=== PATIENT | male | born 1950 | race Caucasian/White ===

== ENCOUNTER → 2017-08-16 | Outpatient (REF) | payer MEDICARE ==
[2017-08-17 08:06] LABS: LDL DIRECT 98 mg/dL (0-99)
== END ==
LOC: M LAB REF 12:35
DX: E78.2 Mixed hyperlipidemia (principal)
CPT/HCPCS: 83721

== ENCOUNTER → 2018-02-21 | Outpatient (REF) | payer MEDICARE ==
[2018-02-23 08:06] LABS: LDL DIRECT 115 mg/dL (0-99)
== END ==
LOC: M LAB REF 17:16
DX: E78.2 Mixed hyperlipidemia (principal)
CPT/HCPCS: 83721

== ENCOUNTER 2018-07-16 17:12 | Emergency (ER) | payer MEDICARE ==
[~2018-07-16] VITALS: Ht 170.2 cm; Wt 109.1 kg
[~2018-07-16 17:12] MED LIST: /AUGM25TA; ACET65TA; ACTO45TA; ASPI81TA83 PO; ATOR80TA59 PO; AZIT500T2 PO; BACT800T; BENICAR HCT; CARA1TAB6 PO; DARV100T; GLUC1000; GLUC500T; GLUC5TAB3; GLYB5TAB5 PO; HYDR25TA8; LISI-542 PO; LOPR50TA PO; MAGN400T2 PO; METF500T PO; METO-743; METO1TAB63 PO; MIRA3350 PO; MULTLIQ7 PO; NEUR300C PO; NICO21DI4; PERCOCET PO; PRED10TA2; PRED20TA PO; PRED5TA PO; PREDPOW10; PROT1TAB2 PO; SIMV20TA2 PO; SKEL800T5; SKELAXIN; TRAM50TA2; TRAM50TA2 PO; TRAZ-160 PO; VITA-115 PO; VITA-183 PO; VITMTA PO; VYTO10TA5; WARF-23 PO; XANA0.25 PO; ZEST20TA8 PO; ZETI10TA; ZOLO50TA PO; [UNRECOGNIZED DRUG - MIXTURE] PO
[2018-07-16] MEDS ORDERED: METF500T4 (17:21)
[2018-07-16] MEDS ORDERED: JANU25TA PO (17:21)
[2018-07-16] MEDS ORDERED: guaiFENesin SYRUP 200 MG/10 ML UDC PO ONE (17:45)
[2018-07-16] MEDS ORDERED: ALBUTEROL SULFATE 2.5 MG/0.5 ML INH NEB SOLN NEB ONE (17:45)
[2018-07-16] MEDS ORDERED: GUAI100L6 PO (18:04)
[2018-07-16] MEDS ORDERED: FLON1SPR NARES (18:04)
[2018-07-16] MEDS ORDERED: AZIT-12 PO (18:04)
[2018-07-16] MEDS ORDERED: AZITHROMYCIN 250 MG TAB PO ONE (18:15)
[2018-07-16 18:26] VITALS: BP 127/70
--- NOTE | 2018-07-17 07:32 | REP ---
Chest x-ray: Two views. History: Cough and wheezing. Comparison study: August 06, 2013. Findings: The lungs are symmetrically aerated and free of infiltrate. Pleural angles are sharp. Heart is not enlarged. The patient is status post prior median sternotomy and aortic valve replacement. There is no evidence of pleural effusion. Mild degenerative changes are seen in the thoracic spine. Impression: Status post prior sternotomy and aortic valve replacement. No acute disease. Electronically Signed by Catarino Tobar MD 07/17/2018 07:55 A
== END 2018-07-16 18:27 | disposition home or self-care (01) ==
LOC: M ED 17:12
DX: J18.9 Pneumonia, unspecified organism (principal); E11.9 Type 2 diabetes mellitus without complications; I10 Essential (primary) hypertension; F41.9 Anxiety disorder, unspecified; M31.6 Other giant cell arteritis; J32.9 Chronic sinusitis, unspecified; E66.9 Obesity, unspecified; Z95.2 Presence of prosthetic heart valve; Z96.9 Presence of functional implant, unspecified; Z72.0 Tobacco use; Z79.84 Long term (current) use of oral hypoglycemic drugs; Z79.01 Long term (current) use of anticoagulants; Z79.899 Other long term (current) drug therapy; Z91.041 Radiographic dye allergy status; Z91.040 Latex allergy status; Z88.8 Allergy status to other drugs, medicaments and biological substances

== ENCOUNTER 2018-07-23 13:22 | Emergency (ER) | payer MEDICARE ==
[~2018-07-23] VITALS: Ht 177.8 cm; Wt 109.1 kg
[~2018-07-23 13:22] MED LIST changes: +AZIT-12 PO; +FLON1SPR NARES; +GUAI100L6 PO; +JANU25TA PO; +METF500T4
[2018-07-23 13:23] VITALS: BP 134/73
[2018-07-23] MEDS ORDERED: VENTAER INH (14:09)
[2018-07-23] MEDS ORDERED: BREAMIS10 MC (14:09)
[2018-07-23] MEDS ORDERED: AMOX875T2 PO (14:09)
[2018-07-23] MEDS ORDERED: PRED20TA PO (14:09)
== END 2018-07-23 14:41 | disposition home or self-care (01) ==
LOC: M ED 13:22
DX: J01.90 Acute sinusitis, unspecified (principal); R05 Cough; R06.2 Wheezing; I13.0 Hypertensive heart and chronic kidney disease with heart failure and stage 1 through stage 4 chronic kidney disease, or unspecified chronic kidney disease; I50.9 Heart failure, unspecified; N18.9 Chronic kidney disease, unspecified; I25.2 Old myocardial infarction; E11.9 Type 2 diabetes mellitus without complications; E78.5 Hyperlipidemia, unspecified; G47.30 Sleep apnea, unspecified; G89.29 Other chronic pain; M54.9 Dorsalgia, unspecified; F17.210 Nicotine dependence, cigarettes, uncomplicated; Z86.73 Personal history of transient ischemic attack (TIA), and cerebral infarction without residual deficits; Z79.01 Long term (current) use of anticoagulants; Z79.891 Long term (current) use of opiate analgesic; Z79.899 Other long term (current) drug therapy; Z88.8 Allergy status to other drugs, medicaments and biological substances; Z95.4 Presence of other heart-valve replacement; Z91.040 Latex allergy status; Z91.041 Radiographic dye allergy status

== ENCOUNTER 2019-02-11 16:13 | Emergency (ER) | payer MEDICARE ==
[~2019-02-11] VITALS: Ht 172.7 cm; Wt 114.1 kg
[~2019-02-11 16:13] MED LIST changes: +AMOX875T2 PO; -AZIT500T2 PO; +AZIT500T5 PO; +BREAMIS10 MC; +METF-791; -METF500T4; -TRAZ-160 PO; +TRAZ-252 PO; +VENTAER INH
[2019-02-11] MEDS ORDERED: GLUCTAB PO (16:21)
--- NOTE | 2019-02-11 17:16 | REP ---
CT of the brain without IV contrast: Comparisons are 08/06/2013 and 06/06/2013. There is no subdural or epidural hematoma. There is no intraparenchymal or subarachnoid hemorrhage. There is no edema, mass effect or midline shift. There is focal encephalomalacia consistent with an old infarct posteriorly in the left parietal lobe. There is mild diffuse atrophy, unchanged. There is opacification of many ethmoid sinus air cells, compatible with sinusitis as an interval change . Impression: No hemorrhage, acute infarct or mass. 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 Chronic mild diffuse atrophy. Ethmoid sinusitis as an interval change. Electronically Signed by Pal Leyva MD 02/11/2019 05:07 P
--- NOTE | 2019-02-11 17:17 | REP ---
Right humerus two views : There is no fracture or dislocation. Mineralization and joint spaces are normal. There are no calcifications or foreign bodies. Impression: Negative right humerus . Electronically Signed by Pal Leyva MD 02/11/2019 05:09 P
--- NOTE | 2019-02-11 17:19 | REP ---
Right elbow for views : There is no fracture or dislocation. Mineralization and joint spaces are normal. There are no calcifications or foreign bodies. Impression: Negative right elbow . Electronically Signed by Pal Leyva MD 02/11/2019 05:10 P
[2019-02-11] MEDS ORDERED: PERC5TAB12 PO (17:45)
[2019-02-11 18:04] VITALS: BP 162/77
== END 2019-02-11 18:05 | disposition home or self-care (01) ==
LOC: M ED 16:13
DX: S09.90XA Unspecified injury of head, initial encounter (principal); S40.021A Contusion of right upper arm, initial encounter; W22.8XXA Striking against or struck by other objects, initial encounter; Y92.096 Garden or yard of other non-institutional residence as the place of occurrence of the external cause; Y93.H9 Activity, other involving exterior property and land maintenance, building and construction; Y99.8 Other external cause status; F17.210 Nicotine dependence, cigarettes, uncomplicated; Z91.041 Radiographic dye allergy status; Z88.8 Allergy status to other drugs, medicaments and biological substances; Z91.040 Latex allergy status; Z79.899 Other long term (current) drug therapy; Z79.01 Long term (current) use of anticoagulants; Z79.84 Long term (current) use of oral hypoglycemic drugs

== ENCOUNTER 2019-06-24 10:59 | Emergency (ER) | payer MEDICARE ==
[~2019-06-24] VITALS: Ht 172.7 cm; Wt 114.7 kg
[~2019-06-24 10:59] MED LIST changes: +GLUCTAB PO; +PERC5TAB12 PO
[2019-06-24 12:16] VITALS: BP 157/72
== END 2019-06-24 12:22 | disposition home or self-care (01) ==
LOC: M ED 10:59
DX: B07.0 Plantar wart (principal); I50.9 Heart failure, unspecified; E11.9 Type 2 diabetes mellitus without complications; I10 Essential (primary) hypertension; E78.5 Hyperlipidemia, unspecified; Z86.73 Personal history of transient ischemic attack (TIA), and cerebral infarction without residual deficits; R51 Headache; G47.33 Obstructive sleep apnea (adult) (pediatric); I77.6 Arteritis, unspecified; Z86.718 Personal history of other venous thrombosis and embolism; F17.200 Nicotine dependence, unspecified, uncomplicated; Z79.01 Long term (current) use of anticoagulants; Z79.899 Other long term (current) drug therapy; Z91.040 Latex allergy status; Z91.041 Radiographic dye allergy status; Z88.8 Allergy status to other drugs, medicaments and biological substances

== ENCOUNTER 2019-07-23 13:12 | Emergency (ER) | payer MEDICARE ==
[~2019-07-23] VITALS: Ht 172.7 cm; Wt 114.2 kg
[2019-07-23] MEDS ORDERED: methylPREDNISolone INJ 125 MG/2 ML VIAL (J2930) IV ONE (13:45)
[2019-07-23] MEDS: COMBIVENT RESPIMAT 100-20MCG INHALER 4GM INH PRN ×4 (13:59→15:17)
[2019-07-23 14:15] LABS: BASO # 0.1 10^3/uL (0.0-0.2); BASO % 0.5 % (0.0-1.0); EOS # 0.5 10^3/uL (0.0-0.5); EOS % 5.2 % (0.0-3.0); HEMATOCRIT 45.3 % (42.0-52.0); HEMOGLOBIN 15.4 g/dl (13.5-17.5); LYMPH # 2.2 10^3/uL (1.5-5.0); LYMPH % 23.8 % (24.0-44.0); MEAN CORPUSCULAR HEMOGLOBIN 33.1 pg (27.0-33.0); MEAN CORPUSCULAR VOLUME 97.4 fl (80.0-96.0); MONO % 11.4 % (0.0-5.0); NEUTROPHILS # 5.4 10^3/uL (1.5-8.5); NEUTROPHILS % 58.8 % (36.0-66.0); PLATELET COUNT, AUTOMATED 183 10^3/uL (150-450); RED BLOOD COUNT 4.65 10^6/uL (4.30-6.10); WHITE BLOOD COUNT 9.1 10^3/uL (4.0-10.0)
--- NOTE | 2019-07-23 14:23 | ECGEPIP ---
[facility] - ED Test Date: 2019-07-23 Pat Name: IRENE NEELY Department: Room: - Gender: Male Framing Inspector: jfjose : 1950 Requested By: SERENE Akins Order Number: [id number] Reading MD: Aditi Santamaria Measurements Intervals [place] Rate: 77 P: 28 MT: 212 QRS: -51 QRSD: 146 T: 28 QT: 421 QTc: 478 Interpretive Statements Normal sinus rhythm INTRAVENTRICULAR CONDUCTION DELAY LAD LAFB DELAYED R WAVE PROGRESSION PVCS NONSPECIFIC ST T WAVE CHANGES NO PRIOR ECG FOR COMPARISON Electronically Signed on 07-23-2019 14:22:40 EDT by Aditi Santamaria
[2019-07-23 14:44] LABS: ALBUMIN 3.5 GM/DL (3.2-5.2); ALT/SGPT 21 U/L (12-78); BILIRUBIN,DIRECT < 0.1 MG/DL (0.0-0.2); BILIRUBIN,TOTAL 0.5 MG/DL (0.2-1.0); BLOOD UREA NITROGEN 25 MG/DL (7-18); CALCIUM LEVEL 8.5 MG/DL (8.8-10.2); CARBON DIOXIDE LEVEL 25 MEQ/L (21-32); CHLORIDE LEVEL 105 MEQ/L (98-107); CK-MB VALUE MASS 1.1 NG/ML (<3.6); CPK CREATINE PHOSPHOKINASE 100 U/L (39-308); CREATININE FOR GFR 0.96 MG/DL (0.70-1.30); GLOMERULAR FILTRATION RATE > 60.0 (>42); GLUCOSE, FASTING 132 MG/DL (70-100); NT-PRO BNP 678 PG/ML (<125); POTASSIUM SERUM 4.9 MEQ/L (3.5-5.1); SODIUM LEVEL 137 MEQ/L (136-145); TOTAL PROTEIN 7.4 GM/DL (6.4-8.2); TROPONIN I 0.03 NG/ML (< 0.10)
[2019-07-23] MEDS ORDERED: VENTAER INH (15:09)
[2019-07-23] MEDS ORDERED: PRED20TA PO (15:10)
[2019-07-23] MEDS ORDERED: FUROSEMIDE 40MG/4ML VIAL (J1940) IV ONE (15:15)
[2019-07-23 15:24] VITALS: BP 157/64
--- NOTE | 2019-07-24 00:42 | REP ---
PORTABLE CHEST X-RAY, SINGLE VIEW: HISTORY: Dyspnea and cough. COMPARISON CHEST X-RAY: 07/16/2018 FINDINGS: Patient is status post prior median sternotomy. Monitoring electrodes are seen. Pleural angles are sharp. There is mild cephalization of the pulmonary vasculature. No focal infiltrate is seen. There are two or three linear subpleural densities on the right, which appear to be new, consistent with subsegmental atelectasis versus Shanelle lines. There is fissural thickening. Heart size is unchanged. IMPRESSION: Pulmonary vascular cephalization. Post median sternotomy. Shanelle lines versus subsegmental atelectatic areas along the right lateral chest. Unreviewed
== END 2019-07-23 15:36 | disposition left against medical advice (07) ==
LOC: M ED 13:12
DX: R06.02 Shortness of breath (principal); R94.31 Abnormal electrocardiogram [ECG] [EKG]; I28.8 Other diseases of pulmonary vessels; Z53.21 Procedure and treatment not carried out due to patient leaving prior to being seen by health care provider; I11.0 Hypertensive heart disease with heart failure; I25.10 Atherosclerotic heart disease of native coronary artery without angina pectoris; E11.9 Type 2 diabetes mellitus without complications; D64.9 Anemia, unspecified; E78.5 Hyperlipidemia, unspecified; I63.9 Cerebral infarction, unspecified; F17.210 Nicotine dependence, cigarettes, uncomplicated; Z88.8 Allergy status to other drugs, medicaments and biological substances; Z91.041 Radiographic dye allergy status; Z91.040 Latex allergy status; Z79.51 Long term (current) use of inhaled steroids; Z79.899 Other long term (current) drug therapy
CPT/HCPCS: 36415; 71045; 80048; 80076; 82550; 82553; 83880; 84443; 84484; 85025; 87486; 87581; 87633; 87798; 93005; 93041; 94640; 94760; 96374; 99285; J1940; J2930; U0002

== ENCOUNTER → 2019-10-20 | Outpatient (CLI) | payer MEDICARE ==
[~2019-10-20] MED LIST changes: +ALPR0.25 PO; +AMIO400T5 PO; +ATOR40TA75 PO; +DOK1CAP7 PO; +FERR32TA AD; +FOLI1TAB11 PO; +FURO20TA2; +JANU100T PO; +LASI40TA9 PO; -METF-791; +METF-838; +METO50TA7; +NITR0.4S14 SL; +OXYC1TAB23 PO; +POTA1TAB14 PO; +PRAS10TA2 PO; +PRED20TA; +TOPR25TA PO; +TORS100T PO; +TORS10TA3 PO; +XARE15TA PO
--- NOTE | 2019-10-20 13:13 | REP ---
REASON: Tobacco abuse. There are no priors for comparison. As per the protocol, only lung window images were sent to the read station for interpretation. Curvilinear densities are seen scattered throughout the lung nathan with mild bibasilar ground-glass opacities. There are no abnormal nodules. Grossly, the mediastinum and pulmonary justina are within normal limits. Grossly, the imaged upper abdomen and imaged osseous structures are within normal limits. IMPRESSION: Likely chronic changes as described above without evidence of a significant nodule, however, since there are no priors for comparison, I would recommend a short interval three month followup. Electronically Signed by Liam Perez DO 10/20/2019 05:00 P
== END ==
LOC: M RAD 11:11
PROVIDERS: ATTEND Family Medicine
DX: Z12.2 Encounter for screening for malignant neoplasm of respiratory organs (principal); F17.210 Nicotine dependence, cigarettes, uncomplicated

== ENCOUNTER → 2019-11-08 | Emergency (ER) | payer MEDICARE ==
[~2019-11-08] MED LIST changes: +FUROSEMIDE 20MG/2ML VIAL (J1940) As Ordered ONE; +FUROSEMIDE 20MG/2ML VIAL (J1940) ONE
--- NOTE | 2019-12-21 17:16 | ECGEPIP ---
SINUS RHYTHM IVCD LAD SEE SCANNED DOWNTIME REPORT MTDD
--- NOTE | 2019-12-28 10:04 | REP ---
PORTABLE CHEST X-RAY: COMPARISON: None. HISTORY: Chest pain. FINDINGS: The patient is status post prior median sternotomy. The left hemidiaphragm is slightly elevated. There is linear fibrosis in the left perihilar region, mild in degree. The lungs are otherwise well-inflated and clear. The pleural angles are sharp. The thoracic aorta is somewhat tortuous. Pulmonary vasculature is not increased. IMPRESSION: Mild linear fibrosis left perihilar region. Prior sternotomy. Otherwise no acute disease. MTDD
[2020-01-26 08:18] LABS: ALBUMIN 3.7 GM/DL (3.2-5.2); ALT/SGPT 24 U/L (12-78); BILIRUBIN,TOTAL 0.7 MG/DL (0.2-1.0); BLOOD UREA NITROGEN 25 MG/DL (7-18); CALCIUM LEVEL 9.1 MG/DL (8.8-10.2); CARBON DIOXIDE LEVEL 23 MEQ/L (21-32); CHLORIDE LEVEL 109 MEQ/L (98-107); CK-MB VALUE MASS 1.4 NG/ML (<3.6); CPK CREATINE PHOSPHOKINASE 107 U/L (39-308); CREATININE FOR GFR 1.25 MG/DL (0.70-1.30); GLOMERULAR FILTRATION RATE > 60.0 (>42); GLUCOSE, FASTING 134 MG/DL (70-100); MAGNESIUM LEVEL 1.8 MG/DL (1.8-2.4); MB/CK RELATIVE INDEX 1.31 (< OR =4); NT-PRO BNP 2704 PG/ML (<125); POTASSIUM SERUM 4.5 MEQ/L (3.5-5.1); SODIUM LEVEL 138 MEQ/L (136-145); THYROID STIMULATING HORMONE 0.939 uIU/ML (0.358-3.740); TOTAL PROTEIN 7.7 GM/DL (6.4-8.2); TROPONIN I 0.06 NG/ML (< 0.10)
[2020-02-06 11:22] LABS: BASO % 0.3 % (0.0-1.0); EOS # 0.4 10^3/uL (0.0-0.5); EOS % 4.4 % (0.0-3.0); HEMOGLOBIN 15.2 g/dl (13.5-17.5); LYMPH # 1.8 10^3/uL (1.5-5.0); LYMPH % 20.3 % (24.0-44.0); MEAN CORPUSCULAR HGB CONC 33.8 g/dl (32.0-36.5); MEAN CORPUSCULAR VOLUME 97.6 fl (80.0-96.0); MONO # 0.8 10^3/uL (0.0-0.8); MONO % 8.8 % (0.0-5.0); NEUTROPHILS # 5.9 10^3/uL (1.5-8.5); NEUTROPHILS % 65.8 % (36.0-66.0); PLATELET COUNT, AUTOMATED 169 10^3/uL (150-450); RED BLOOD COUNT 4.61 10^6/uL (4.30-6.10); WHITE BLOOD COUNT 8.9 10^3/uL (4.0-10.0)
[2020-02-07 16:09] LABS: INR 1.84; PARTIAL THROMBOPLASTIN TIME 36.7 SECONDS (24.2-38.5); PROTHROMBIN TIME 21.7 SECONDS (12.5-14.3)
== END | disposition home or self-care (01) ==
LOC: M ED 15:50
DX: E87.70 Fluid overload, unspecified (principal); E11.9 Type 2 diabetes mellitus without complications; I10 Essential (primary) hypertension; M54.9 Dorsalgia, unspecified; Z86.73 Personal history of transient ischemic attack (TIA), and cerebral infarction without residual deficits; Z79.01 Long term (current) use of anticoagulants; Z79.899 Other long term (current) drug therapy; Z79.84 Long term (current) use of oral hypoglycemic drugs; Z91.040 Latex allergy status
CPT/HCPCS: 71045; 80053; 81001; 82550; 82553; 83036; 83735; 83880; 84443; 84484; 85025; 85610; 85730; 87040; 93005; 96374; 99284; J1940

== ENCOUNTER 2019-12-14 10:36 | Emergency (ER) | payer MEDICARE ==
[~2019-12-14] VITALS: Ht 172.7 cm; Wt 111.0 kg
[~2019-12-14 10:36] MED LIST changes: -ALPR0.25 PO; -AMIO400T5 PO; -ATOR40TA75 PO; -DOK1CAP7 PO; -FERR32TA AD; -FOLI1TAB11 PO; -FURO20TA2; -FUROSEMIDE 20MG/2ML VIAL (J1940) As Ordered ONE; -FUROSEMIDE 20MG/2ML VIAL (J1940) ONE; -JANU100T PO; -LASI40TA9 PO; -METO50TA7; -NITR0.4S14 SL; -OXYC1TAB23 PO; -POTA1TAB14 PO; -PRAS10TA2 PO; -PRED20TA; -TOPR25TA PO; -TORS100T PO; -TORS10TA3 PO; -XARE15TA PO
[2019-12-14] MEDS ORDERED: FURO20TA2 (10:45)
[2019-12-14] MEDS ORDERED: METO50TA7 (10:45)
[2019-12-14 12:29] LABS: HEMATOCRIT 37.7 % (42.0-52.0); HEMOGLOBIN 12.6 g/dl (13.5-17.5); MEAN CORPUSCULAR HEMOGLOBIN 32.7 pg (27.0-33.0); MEAN CORPUSCULAR HGB CONC 33.4 g/dl (32.0-36.5); MEAN CORPUSCULAR VOLUME 97.9 fl (80.0-96.0); PLATELET COUNT, AUTOMATED 181 10^3/uL (150-450); RED BLOOD COUNT 3.85 10^6/uL (4.30-6.10); WHITE BLOOD COUNT 7.6 10^3/uL (4.0-10.0)
--- NOTE | 2019-12-14 12:33 | REPVR ---
PROCEDURE INFORMATION: Exam: XR Chest, 1 View Exam date and time: 12/14/2019 12:07 PM Age: 69 years old Clinical indication: Shortness of breath; Additional info: Chf TECHNIQUE: Imaging protocol: XR of the chest Views: Frontal portable upright view of the chest. COMPARISON: CR CHEST, CHEST AP 55" VG 11/08/2019 4:34 PM FINDINGS: Tubes, catheters and devices: EKG leads are present overlying the chest. Lungs: The pulmonary vasculature is normal. The lungs are clear bilaterally. Pleural space: No pleural effusion. No pneumothorax. Heart/Mediastinum: Stable borderline cardiomegaly. Bones/joints: The patient is status post median sternotomy with intact sternal cerclage wires. IMPRESSION: No acute cardiopulmonary abnormality identified. Electronically signed by: Yung Hinton On 12/14/2019 12:33:04 PM
[2019-12-14 12:50] LABS: CALCIUM LEVEL 8.7 MG/DL (8.8-10.2); CK-MB VALUE MASS 1.5 NG/ML (<3.6); CREATININE FOR GFR 1.3 MG/DL (0.70-1.30); GLOMERULAR FILTRATION RATE 57.9 (>42); MB/CK RELATIVE INDEX 2.21 (< OR =4); POTASSIUM SERUM 4.3 MEQ/L (3.5-5.1); TROPONIN I 0.12 NG/ML (< 0.10)
[2019-12-14] MEDS ORDERED: FUROSEMIDE 40MG/4ML VIAL (J1940) IV ONE (13:15)
[2019-12-14 15:17] LABS: CK-MB VALUE MASS 1.5 NG/ML (<3.6); MB/CK RELATIVE INDEX 2.21 (< OR =4); TROPONIN I 0.14 NG/ML (< 0.10)
[2019-12-14] MEDS ORDERED: LASI40TA9 PO (15:49)
[2019-12-14 16:05] VITALS: BP 136/60
--- NOTE | 2019-12-19 19:36 | ECGEPIP ---
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
== END 2019-12-14 16:07 | disposition home or self-care (01) ==
LOC: M ED 10:36
DX: I50.9 Heart failure, unspecified (principal); I35.0 Nonrheumatic aortic (valve) stenosis; Z95.2 Presence of prosthetic heart valve; R60.0 Localized edema; M31.6 Other giant cell arteritis; I11.0 Hypertensive heart disease with heart failure; E11.22 Type 2 diabetes mellitus with diabetic chronic kidney disease; I25.2 Old myocardial infarction; M51.9 Unspecified thoracic, thoracolumbar and lumbosacral intervertebral disc disorder; D64.9 Anemia, unspecified; Z95.1 Presence of aortocoronary bypass graft; F17.200 Nicotine dependence, unspecified, uncomplicated; Z86.718 Personal history of other venous thrombosis and embolism; Z91.041 Radiographic dye allergy status; Z88.8 Allergy status to other drugs, medicaments and biological substances; Z91.040 Latex allergy status; Z79.899 Other long term (current) drug therapy; Z79.01 Long term (current) use of anticoagulants; Z79.84 Long term (current) use of oral hypoglycemic drugs
CPT/HCPCS: 36415; 71045; 80048; 82550; 82553; 83880; 84484; 85027; 93005; 96374; 99284; J1940

== ENCOUNTER 2019-12-21 00:08 | Emergency (ER) | payer MEDICARE ==
[~2019-12-21] VITALS: Ht 172.7 cm; Wt 106.4 kg
[~2019-12-21 00:08] MED LIST changes: +FURO20TA2; +LASI40TA9 PO; +METO50TA7
[2019-12-21] MEDS ORDERED: PRED20TA (00:22)
--- NOTE | 2019-12-21 03:36 | REPVR ---
PROCEDURE INFORMATION: Exam: XR Chest, 1 View Exam date and time: 12/21/2019 1:32 AM Age: 69 years old Clinical indication: Other: Chest pain; Prior surgery TECHNIQUE: Imaging protocol: XR of the chest Views: 1 view. COMPARISON: CR Chest, 1 view 12/14/2019 12:12 PM FINDINGS: Lungs: Coarse bilateral predominantly perihilar and right base reticulonodular opacities. Pleural space: Unremarkable. No pleural effusion. No pneumothorax. Heart/Mediastinum: See "Bones/joints" finding. Bones/joints: Status post median sternotomy and aortic valve replacement. Degenerative changes the bilateral shoulders. Mild multilevel degenerative disease of the thoracic spine. IMPRESSION: Coarse bilateral predominantly perihilar and right base reticulonodular opacities. Electronically signed by: Wally Padgett On 12/21/2019 03:36:21 AM
[2019-12-21] MEDS ORDERED: traMADol 50 MG TAB PO ONE (04:45)
[2019-12-21] MEDS ORDERED: ASPIRIN 81 MG CHEW TABLET PO ONE (06:15)
[2019-12-21 06:42] LABS: INR 1.12; PROTHROMBIN TIME 14.6 SECONDS (11.8-14.0)
[2019-12-21 06:43] LABS: PARTIAL THROMBOPLASTIN TIME 37.9 SECONDS (25.0-38.4)
[2019-12-21] MEDS ORDERED: HEPARIN DRIP 25,000 UNITS in IV 1 EA IV SCH (06:46)
[2019-12-21] MEDS ORDERED: HEPARIN SOD (PORCINE) 5000UNITS/ML 1ML VIAL/SYRINGE IV ONE (07:00)
[2019-12-21 07:08] VITALS: BP 133/62
--- NOTE | 2019-12-23 11:29 | ECGEPIP ---
[facility] - ED Test Date: 2019-12-21 Pat Name: IRENE NEELY Department: Room: - Gender: Male Guard Immigration: yaima : 1950 Requested By: Arie Castro Order Number: [id number] Reading MD: Arie Moreland Measurements Intervals [place] Rate: 76 P: 18 [place]: 200 QRS: -62 QRSD: 153 T: 107 QT: 455 QTc: 514 Interpretive Statements SINUS RHYTHM INTRAVENTRICULAR CONDUCTION DELAY NSTTW ABNORMALITIES SIMILAR TO 12/14/19 Electronically Signed on 12-23-2019 11:29:20 EDT by Arie Moreland
== END 2019-12-21 07:22 | disposition short-term general hospital (02) ==
LOC: M ED 00:08
DX: I20.0 Unstable angina (principal); I35.0 Nonrheumatic aortic (valve) stenosis; Z95.2 Presence of prosthetic heart valve; E11.9 Type 2 diabetes mellitus without complications; I11.0 Hypertensive heart disease with heart failure; I25.2 Old myocardial infarction; D64.9 Anemia, unspecified; Z86.718 Personal history of other venous thrombosis and embolism; Z86.73 Personal history of transient ischemic attack (TIA), and cerebral infarction without residual deficits; F17.200 Nicotine dependence, unspecified, uncomplicated; Z91.040 Latex allergy status; Z91.041 Radiographic dye allergy status; Z79.01 Long term (current) use of anticoagulants; Z79.51 Long term (current) use of inhaled steroids; Z79.899 Other long term (current) drug therapy
CPT/HCPCS: 71045; 80047; 84484; 85610; 85730; 93005; 93041; 94760; 96374; 99285; J1644; U0002

== ENCOUNTER 2020-01-07 18:57 | Emergency (ER) | payer MEDICARE ==
[~2020-01-07] VITALS: Ht 172.7 cm; Wt 60.9 kg
[~2020-01-07 18:57] MED LIST changes: +PRED20TA
[2020-01-07 19:53] LABS: BASO % 0.3 % (0.0-1.0); EOS # 0.3 10^3/uL (0.0-0.5); EOS % 3.8 % (0.0-3.0); HEMATOCRIT 32.9 % (42.0-52.0); HEMOGLOBIN 10.3 g/dl (13.5-17.5); LYMPH # 1.4 10^3/uL (1.5-5.0); LYMPH % 15.4 % (24.0-44.0); MEAN CORPUSCULAR HEMOGLOBIN 30.4 pg (27.0-33.0); MEAN CORPUSCULAR HGB CONC 31.3 g/dl (32.0-36.5); MEAN CORPUSCULAR VOLUME 97.1 fl (80.0-96.0); MONO # 0.7 10^3/uL (0.0-0.8); MONO % 8.2 % (0.0-5.0); NEUTROPHILS # 6.5 10^3/uL (1.5-8.5); NEUTROPHILS % 71.5 % (36.0-66.0); PLATELET COUNT, AUTOMATED 323 10^3/uL (150-450); RED BLOOD COUNT 3.39 10^6/uL (4.30-6.10)
[2020-01-07] MEDS ORDERED: diphenhydrAMINE 50MG/ML VIAL (J1200) IV ONE (20:00)
[2020-01-07] MEDS ORDERED: methylPREDNISolone 125MG 2ML VIAL IV ONE (20:00)
[2020-01-07] MEDS ORDERED: ONDANSETRON 4MG/2ML VIAL IV ONE (20:00)
[2020-01-07] MEDS ORDERED: fentaNYL 100 MCG/2 ML INJECTION (J3010) IV ONE (20:00)
[2020-01-07 20:13] LABS: INR 1.96; PROTHROMBIN TIME 22.8 SECONDS (12.5-14.3)
[2020-01-07 20:14] LABS: PARTIAL THROMBOPLASTIN TIME 49.5 SECONDS (24.2-38.5)
[2020-01-07] MEDS ORDERED: ISOVUE-370 76% 100ML VIAL As Ordered ONE (20:21)
[2020-01-07 20:27] LABS: ALBUMIN 2.9 GM/DL (3.2-5.2); ALT/SGPT 29 U/L (12-78); BILIRUBIN,DIRECT 0.2 MG/DL (0.0-0.2); BILIRUBIN,TOTAL 0.5 MG/DL (0.2-1.0); BLOOD UREA NITROGEN 15 MG/DL (7-18); CALCIUM LEVEL 8.4 MG/DL (8.8-10.2); CARBON DIOXIDE LEVEL 28 MEQ/L (21-32); CHLORIDE LEVEL 103 MEQ/L (98-107); CK-MB VALUE MASS 1.9 NG/ML (<3.6); CPK CREATINE PHOSPHOKINASE 62 U/L (39-308); CREATININE FOR GFR 0.92 MG/DL (0.70-1.30); GLOMERULAR FILTRATION RATE > 60.0 (>42); GLUCOSE, FASTING 128 MG/DL (70-100); MB/CK RELATIVE INDEX 3.06 (< OR =4); NT-PRO BNP 4373 PG/ML (<125); POTASSIUM SERUM 4.8 MEQ/L (3.5-5.1); SODIUM LEVEL 136 MEQ/L (136-145); TOTAL PROTEIN 6.9 GM/DL (6.4-8.2); TROPONIN I 0.06 NG/ML (< 0.10)
--- NOTE | 2020-01-07 20:34 | REPVR ---
PROCEDURE INFORMATION: Exam: XR Chest, 1 View Exam date and time: 01/07/2020 7:49 PM Age: 69 years old Clinical indication: Cough and dyspnea; Prior surgery; Surgery date: 3-7 days post-operative; Patient HX: Recent cardiac surgery; Additional info: Dyspnea/cough TECHNIQUE: Imaging protocol: XR of the chest Views: 1 view. COMPARISON: CR Chest, 1 view 12/21/2019 2:30 AM FINDINGS: Tubes, catheters and devices: Implantable cardioverter-defibrillator (ICD) with leads in the right atrial appendage and right ventricular apex. An additional pacemaker wire is in the coronary sinus. Lungs: Both lungs are hypoinflated. Mild discoid atelectasis at the right lateral lung base. No pulmonary consolidation. The left lung is clear. The left lung is clear. Pleural space: Small right pleural effusion with new pleural thickening peripheral to the right mid lung. No left pleural effusion. Heart/Mediastinum: Mild cardiomegaly is worse compared to the last x-ray on 12/21/19. Bones/joints: Sternotomy closure with wire sutures. Soft tissues: Unremarkable. IMPRESSION: 1. Mild cardiomegaly is worse compared to the last x-ray on 12/21/19. 2. Both lungs are hypoinflated. Mild discoid atelectasis at the right lateral lung base. No pulmonary consolidation. 3. The left lung is clear. 4. Small right pleural effusion. Electronically signed by: Osiel Brown On 01/07/2020 20:33:40 PM
--- NOTE | 2020-01-07 21:24 | REPVR ---
PROCEDURE INFORMATION: Exam: CT Angiography Chest With Contrast Exam date and time: 01/07/2020 8:38 PM Age: 69 years old Clinical indication: Other: Recent open heart, R/O dissection; Prior surgery; Surgery date: <1 month TECHNIQUE: Imaging protocol: Computed tomographic angiography of the chest with intravenous contrast. 3D rendering (Not supervised by radiologist): MIP and/or 3D reconstructed images were created by the technologist. Radiation optimization: All CT scans at this facility use at least one of these dose optimization techniques: automated exposure control; mA and/or kV adjustment per patient size (includes targeted exams where dose is matched to clinical indication); or iterative reconstruction. Contrast material: ISOVUE 370; Contrast volume: 75 ml; Contrast route: INTRAVENOUS (IV); COMPARISON: CR PORTABLE CHEST X-RAY 01/07/2020 7:31 PM FINDINGS: Pulmonary arteries: Suboptimal opacification of pulmonary arteries. Pulmonary embolism is not excluded. The main pulmonary artery measures 28 mm. Aorta: The ascending thoracic aorta measures 41 mm. No gross or obvious aortic dissection is noted. Lungs: Mild scattered fibro-atelectatic change with coarse interstitium and minimal bibasilar infiltrates. Pleural space: Minimal left and trace right pleural effusions. Heart: Status post sternotomy and CABG. The left atrium measures 6.1 cm in its AP dimension. Lymph nodes: Calcified bilateral hilar nodes. Bones/joints: Degenerative changes of the lumbar spine with multiple segments demonstrating decreased height and/or wedge configuration which appear to be chronic. Soft tissues: Unremarkable. IMPRESSION: 1. Minimal left and trace right pleural effusions with mild scattered fibro-atelectatic change with coarse interstitium and minimal bibasilar infiltrates. 2. Mild cardiomegaly with prior sternotomy and CABG. 3. Suboptimal opacification of pulmonary arteries. Pulmonary embolism is not excluded. 4. Mild aneurysmal dilatation of the ascending thoracic aorta measuring 41 mm. 5. Otherwise negative CTA chest. No gross or obvious aortic dissection is noted. Electronically signed by: Chris Antunez On 01/07/2020 21:23:44 PM
[2020-01-07 22:50] VITALS: BP 145/74
--- NOTE | 2020-01-08 06:26 | ECGEPIP ---
[facility] - ED Test Date: 2020-01-07 Pat Name: IRENE NEELY Department: Room: - Gender: Male Hand Ii Cutter: julia : 1950 Requested By: DAWSON Lang Order Number: [id number] Reading MD: Arie Moreland Measurements Intervals [place] Rate: 80 P: [place]: 0 QRS: 219 QRSD: 166 T: 40 QT: 448 QTc: 517 Interpretive Statements ELECTRONIC VENTRICULAR PACEMAKER Electronically Signed on 01-08-2020 6:26:21 EDT by Arie Moreland
== END 2020-01-07 22:48 | disposition left against medical advice (07) ==
LOC: M ED 18:57
DX: I50.9 Heart failure, unspecified (principal); R06.00 Dyspnea, unspecified; M54.9 Dorsalgia, unspecified; Z98.890 Other specified postprocedural states; J98.11 Atelectasis; J90 Pleural effusion, not elsewhere classified; I71.2 Thoracic aortic aneurysm, without rupture; I51.7 Cardiomegaly; Z95.1 Presence of aortocoronary bypass graft; Z95.2 Presence of prosthetic heart valve; Z95.0 Presence of cardiac pacemaker; F17.210 Nicotine dependence, cigarettes, uncomplicated; Z91.041 Radiographic dye allergy status; Z88.8 Allergy status to other drugs, medicaments and biological substances; Z91.040 Latex allergy status; Z79.899 Other long term (current) drug therapy; Z79.01 Long term (current) use of anticoagulants; Z79.84 Long term (current) use of oral hypoglycemic drugs
CPT/HCPCS: 71045; 71275; 80047; 80048; 80076; 82550; 82553; 83880; 84484; 85025; 85610; 85730; 93005; 93041; 94760; 96374; 96375; 99285; J1200; J2405; J2930; J3010; Q9967

== ENCOUNTER 2020-01-09 11:39 | Emergency (ER) | payer MEDICARE ==
[~2020-01-09] VITALS: Ht 172.7 cm; Wt 104.5 kg
[2020-01-09] MEDS ORDERED: diphenhydrAMINE 50MG/ML VIAL (J1200) IV STA (12:36)
[2020-01-09 12:39] LABS: BASO # 0.1 10^3/uL (0.0-0.2); BASO % 0.5 % (0.0-1.0); EOS # 0.3 10^3/uL (0.0-0.5); EOS % 2.8 % (0.0-3.0); HEMATOCRIT 36.8 % (42.0-52.0); HEMOGLOBIN 11.7 g/dl (13.5-17.5); LYMPH # 1.1 10^3/uL (1.5-5.0); MEAN CORPUSCULAR HEMOGLOBIN 31.3 pg (27.0-33.0); MEAN CORPUSCULAR HGB CONC 31.8 g/dl (32.0-36.5); MEAN CORPUSCULAR VOLUME 98.4 fl (80.0-96.0); MONO # 0.7 10^3/uL (0.0-0.8); MONO % 6.2 % (0.0-5.0); NEUTROPHILS # 8.8 10^3/uL (1.5-8.5); NEUTROPHILS % 80.1 % (36.0-66.0); PLATELET COUNT, AUTOMATED 338 10^3/uL (150-450); RED BLOOD COUNT 3.74 10^6/uL (4.30-6.10)
--- NOTE | 2020-01-09 12:39 | REPVR ---
PROCEDURE INFORMATION: Exam: XR Chest, 1 View Exam date and time: 01/09/2020 12:25 PM Age: 69 years old Clinical indication: Shortness of breath; Additional info: Dyspnea/cough TECHNIQUE: Imaging protocol: XR of the chest Views: 1 view. COMPARISON: CR PORTABLE CHEST X-RAY 01/07/2020 7:31 PM FINDINGS: Tubes, catheters and devices: AICD. Lungs: Linear atelectasis or scarring in the right lung base. Pleural space: Chronic right lateral pleural thickening. No sizable pleural effusion. No appreciable pneumothorax. Heart/Mediastinum: Stable prominence of the cardiac silhouette. Bones/joints: Median sternotomy wires. Degenerative change of the spine. IMPRESSION: No acute cardiopulmonary abnormality is identified. Electronically signed by: Karli Mcleod On 01/09/2020 12:39:06 PM
[2020-01-09 12:50] LABS: INR 2.12; PROTHROMBIN TIME 24.2 SECONDS (12.5-14.3)
[2020-01-09 12:56] LABS: ABG BASE EXCESS 2.3 (-2.0-2.0); ABG HCO3 25.1 MEQ/L (22.0-26.0); ABG O2 SATURATION 96.4 % (95.0-99.0); ABG PARTIAL PRESSURE CO2 32.9 mmHg (35.0-45.0); ABG PARTIAL PRESSURE O2 76.3 mmHg (75.0-100.0); ABG STANDARD HCO3 26.5 MEQ/L (22.0-26.0); ABG TOTAL CO2 26.1 MEQ/L (23.0-31.0)
[2020-01-09] MEDS ORDERED: ALPR0.25 PO (13:20)
[2020-01-09] MEDS ORDERED: POTA1TAB14 PO (13:20)
[2020-01-09] MEDS ORDERED: DOK1CAP7 PO (13:20)
[2020-01-09] MEDS ORDERED: ATOR40TA75 PO (13:20)
[2020-01-09] MEDS ORDERED: FERR32TA AD (13:20)
[2020-01-09] MEDS ORDERED: OXYC1TAB23 PO (13:20)
[2020-01-09] MEDS ORDERED: FOLI1TAB11 PO (13:20)
[2020-01-09 13:24] LABS: ALBUMIN 3.5 GM/DL (3.2-5.2); BILIRUBIN,DIRECT 0.2 MG/DL (0.0-0.2); BILIRUBIN,TOTAL 0.5 MG/DL (0.2-1.0); THYROID STIMULATING HORMONE 4.64 uIU/ML (0.358-3.740); THYROXINE (T4) 7.6 UG/DL (4.5-12.0); TOTAL PROTEIN 7.8 GM/DL (6.4-8.2)
[2020-01-09] MEDS ORDERED: ISOVUE-370 76% 100ML VIAL As Ordered ONE (13:37)
[2020-01-09] MEDS ORDERED: FUROSEMIDE 100MG/10ML VIAL (J1940) IV ONE (14:15)
--- NOTE | 2020-01-09 14:40 | REPVR ---
PROCEDURE INFORMATION: Exam: CT Chest With Contrast Exam date and time: 01/09/2020 2:25 PM Age: 69 years old Clinical indication: Shortness of breath; Prior surgery; Surgery date: <1 month; Surgery type: Open heart; Additional info: SOB TECHNIQUE: Imaging protocol: Computed tomography of the chest with intravenous contrast. 3D rendering (Not supervised by radiologist): MIP and/or 3D reconstructed images were created by the technologist. Radiation optimization: All CT scans at this facility use at least one of these dose optimization techniques: automated exposure control; mA and/or kV adjustment per patient size (includes targeted exams where dose is matched to clinical indication); or iterative reconstruction. Contrast material: ISOVUE 370; Contrast volume: 75 ml; Contrast route: INTRAVENOUS (IV); COMPARISON: CT ANGIO CHEST 01/07/2020 8:26 PM FINDINGS: Tubes, catheters and devices: AICD. Lungs: Mild atelectasis in the lung bases. Pleural space: Moderate left and small right pleural effusions. Heart: Status post CABG procedure. Prominent [place] coronary artery calcifications. Cardiomegaly. Mitral annulus calcification. Trace pericardial effusion. Aorta: Moderate atherosclerotic change of the thoracic aorta. Fusiform ectasia of the ascending thoracic aorta, measuring 4.5 cm x 4.6 cm. No thoracic aortic dissection. Lymph nodes: Calcified left hilar lymph nodes are suggestive of prior granulomatous disease. Kidneys and ureters: Bilateral renal cortical cysts. Subcentimeter renal cortical hypodensities are too small to definitively characterize, but likely represent cysts. Stomach and bowel: Colonic diverticulosis. Bones/joints: Right acromioclavicular and glenohumeral joint DJD. Left acromioclavicular and glenohumeral joint DJD. Median sternotomy wires. Incompletely healed sternotomy. Degenerative change of the spine. Soft tissues: Postsurgical change change of the ventral chest and upper abdominal wall. IMPRESSION: 1. Moderate left and small right pleural effusions. 2. Trace pericardial effusion. 3. Fusiform ectasia of the ascending thoracic aorta, unchanged. Electronically signed by: Karli Mcleod On 01/09/2020 14:40:50 PM
[2020-01-09] MEDS ORDERED: TORS100T PO (15:03)
[2020-01-09 15:45] VITALS: BP 119/73
--- NOTE | 2020-01-10 08:26 | ECGEPIP ---
[facility] - ED Test Date: 2020-01-09 Pat Name: IRENE NEELY Department: Room: - Gender: Male Harbor Master: BERTA : 1950 Requested By: Birdie Donovan Order Number: [id number] Reading MD: Bidrie Donovan Measurements Intervals [place] Rate: 81 P: [place]: 0 QRS: 194 QRSD: 186 T: 24 QT: 447 QTc: 520 Interpretive Statements ELECTRONIC VENTRICULAR PACEMAKER ABNORMAL RHYTHM ECG SIMILAR 01/07/20 Electronically Signed on 01-10-2020 8:25:54 EDT by Birdie Donovan
--- NOTE | 2020-01-10 12:27 | ED PDOC ---
Post-Departure Follow-Up dr gonzales faxed formal report of ct chest for fu mlg. pt left ama .Aditi Mathur MD Jan 10, 2020 12:27
== END 2020-01-09 15:49 | disposition left against medical advice (07) ==
LOC: M ED 11:39
DX: I50.1 Left ventricular failure, unspecified (principal); J90 Pleural effusion, not elsewhere classified; I11.0 Hypertensive heart disease with heart failure; Z95.0 Presence of cardiac pacemaker; Z91.041 Radiographic dye allergy status; Z88.8 Allergy status to other drugs, medicaments and biological substances; Z91.040 Latex allergy status; Z79.899 Other long term (current) drug therapy; Z79.01 Long term (current) use of anticoagulants; Z79.84 Long term (current) use of oral hypoglycemic drugs; Z79.891 Long term (current) use of opiate analgesic
CPT/HCPCS: 36600; 71045; 71260; 80047; 80076; 82803; 83880; 84436; 84443; 84484; 85025; 85610; 87040; 93005; 93041; 99285; J1200; J1940; Q9967

== ENCOUNTER 2020-01-21 18:59 | Emergency (ER) | payer MEDICARE ==
[~2020-01-21] VITALS: Ht 172.7 cm; Wt 95.5 kg
[~2020-01-21 18:59] MED LIST changes: +ALPR0.25 PO; +ATOR40TA75 PO; +DOK1CAP7 PO; +FERR32TA AD; +FOLI1TAB11 PO; +OXYC1TAB23 PO; +POTA1TAB14 PO; +TORS100T PO
[2020-01-21 20:15] LABS: BASO # 0.1 10^3/uL (0.0-0.2); BASO % 0.7 % (0.0-1.0); EOS # 0.3 10^3/uL (0.0-0.5); EOS % 3.2 % (0.0-3.0); HEMATOCRIT 41.3 % (42.0-52.0); HEMOGLOBIN 13.3 g/dl (13.5-17.5); LYMPH % 22.4 % (24.0-44.0); MEAN CORPUSCULAR HEMOGLOBIN 30.1 pg (27.0-33.0); MEAN CORPUSCULAR HGB CONC 32.2 g/dl (32.0-36.5); MEAN CORPUSCULAR VOLUME 93.4 fl (80.0-96.0); MONO # 0.8 10^3/uL (0.0-0.8); MONO % 8.4 % (0.0-5.0); NEUTROPHILS # 5.9 10^3/uL (1.5-8.5); NEUTROPHILS % 64.8 % (36.0-66.0); PLATELET COUNT, AUTOMATED 210 10^3/uL (150-450); RED BLOOD COUNT 4.42 10^6/uL (4.30-6.10); WHITE BLOOD COUNT 9.1 10^3/uL (4.0-10.0)
[2020-01-21 20:19] LABS: INR 2.95; PROTHROMBIN TIME 31.4 SECONDS (12.5-14.3)
[2020-01-21 20:20] LABS: PARTIAL THROMBOPLASTIN TIME 40.1 SECONDS (24.2-38.5)
--- NOTE | 2020-01-21 20:35 | REPVR ---
PROCEDURE INFORMATION: Exam: XR Chest, 2 Views Exam date and time: 01/21/2020 8:14 PM Age: 69 years old Clinical indication: Other: Hypotension TECHNIQUE: Imaging protocol: XR of the chest Views: 2 views. COMPARISON: CT Chest with contrast 01/09/2020 2:13 PM FINDINGS: Tubes, catheters and devices: Status post pacer AICD insertion. Lungs: Surgical clips in the right hilar region right lower lobe. Parenchymal stranding in the right mid lung zone likely representing scarring. Lungs otherwise clear. Pleural space: Unremarkable. No pleural effusion. No pneumothorax. Heart/Mediastinum: Cardiomegaly. Bones/joints: Status post sternotomy. IMPRESSION: 1. Cardiomegaly. 2. No acute findings. Electronically signed by: Jerman Viveros On 01/21/2020 20:34:57 PM
--- NOTE | 2020-01-21 20:54 | ECGEPIP ---
[facility] - ED Test Date: 2020-01-21 Pat Name: IRENE NEELY Department: Room: - Gender: Male Vp Customer Service: lr : 1950 Requested By: SERENE Akins Order Number: [id number] Reading MD: Birdie Donovan Measurements Intervals [place] Rate: 93 P: CT: 0 QRS: 189 QRSD: 174 T: 40 QT: 427 QTc: 531 Interpretive Statements ELECTRONIC VENTRICULAR PACEMAKER ABNORMAL RHYTHM ECG INCREASED RATE 01/09/20 Electronically Signed on 01-21-2020 20:54:15 EDT by Birdie Donovan
[2020-01-21 21:26] LABS: ALBUMIN 3.2 GM/DL (3.2-5.2); BILIRUBIN,DIRECT 0.2 MG/DL (0.0-0.2); BILIRUBIN,TOTAL 0.6 MG/DL (0.2-1.0); CALCIUM LEVEL 8.1 MG/DL (8.8-10.2); CK-MB VALUE MASS 1.4 NG/ML (<3.6); CREATININE FOR GFR 1.57 MG/DL (0.70-1.30); FREE T4 0.97 NG/DL (0.76-1.46); GLOMERULAR FILTRATION RATE 46.6 (>42); MB/CK RELATIVE INDEX 3.11 (< OR =4); POTASSIUM SERUM 4.3 MEQ/L (3.5-5.1); THYROID STIMULATING HORMONE 5.83 uIU/ML (0.358-3.740); TOTAL PROTEIN 6.9 GM/DL (6.4-8.2); TROPONIN I 0.02 NG/ML (< 0.10)
[2020-01-21 21:47] VITALS: BP 100/58
== END 2020-01-21 22:37 | disposition home or self-care (01) ==
LOC: M ED 18:59
DX: R53.83 Other fatigue (principal); I11.9 Hypertensive heart disease without heart failure; I25.2 Old myocardial infarction; I38 Endocarditis, valve unspecified; E55.9 Vitamin D deficiency, unspecified; M51.9 Unspecified thoracic, thoracolumbar and lumbosacral intervertebral disc disorder; M19.90 Unspecified osteoarthritis, unspecified site; Z86.73 Personal history of transient ischemic attack (TIA), and cerebral infarction without residual deficits; Z98.890 Other specified postprocedural states; Z95.0 Presence of cardiac pacemaker; F17.200 Nicotine dependence, unspecified, uncomplicated; Z91.041 Radiographic dye allergy status; Z88.8 Allergy status to other drugs, medicaments and biological substances; Z91.040 Latex allergy status; Z79.899 Other long term (current) drug therapy; Z79.01 Long term (current) use of anticoagulants; Z79.84 Long term (current) use of oral hypoglycemic drugs

== ENCOUNTER 2020-01-26 11:51 | Emergency (ER) | payer MEDICARE ==
[2020-01-26] MEDS ORDERED: ASPIRIN 81 MG CHEW TABLET PO ONE (12:30)
[2020-01-26 12:47] LABS: BASO % 0.4 % (0.0-1.0); EOS # 0.2 10^3/uL (0.0-0.5); EOS % 2.4 % (0.0-3.0); HEMATOCRIT 40.8 % (42.0-52.0); HEMOGLOBIN 12.8 g/dl (13.5-17.5); LYMPH # 1.2 10^3/uL (1.5-5.0); LYMPH % 14.4 % (24.0-44.0); MEAN CORPUSCULAR HGB CONC 31.4 g/dl (32.0-36.5); MEAN CORPUSCULAR VOLUME 95.6 fl (80.0-96.0); MONO # 0.5 10^3/uL (0.0-0.8); MONO % 6.4 % (0.0-5.0); NEUTROPHILS # 6.5 10^3/uL (1.5-8.5); NEUTROPHILS % 76.2 % (36.0-66.0); PLATELET COUNT, AUTOMATED 187 10^3/uL (150-450); RED BLOOD COUNT 4.27 10^6/uL (4.30-6.10); WHITE BLOOD COUNT 8.5 10^3/uL (4.0-10.0)
[2020-01-26 13:00] LABS: INR 1.23; PROTHROMBIN TIME 15.8 SECONDS (12.5-14.3)
[2020-01-26 13:01] LABS: PARTIAL THROMBOPLASTIN TIME 28.9 SECONDS (24.2-38.5)
--- NOTE | 2020-01-26 13:16 | REP ---
INDICATION: CHEST PAIN COMPARISON: 01/21/2020 TECHNIQUE: AP and lateral. FINDINGS: The mediastinum and cardiac silhouette are stable. Pacemaker, prior sternotomy and cardiac valve repair again noted. The lung nathan demonstrate stable chronic interstitial changes without acute consolidation, effusion, or pneumothorax. Subtle atelectasis cannot be excluded. The skeletal structures are intact and normal. IMPRESSION: Chronic stable changes. No focal consolidation or effusion. Mild atelectasis to the left lower lobe cannot be excluded. <Electronically signed by Duglas Cesar > 01/26/20 [id number]
[2020-01-26 13:22] LABS: ALT/SGPT 14 U/L (12-78); BLOOD UREA NITROGEN 25 MG/DL (7-18); CALCIUM LEVEL 9.1 MG/DL (8.8-10.2); CARBON DIOXIDE LEVEL 25 MEQ/L (21-32); CHLORIDE LEVEL 102 MEQ/L (98-107); CK-MB VALUE MASS 2.8 NG/ML (<3.6); CPK CREATINE PHOSPHOKINASE 53 U/L (39-308); GLOMERULAR FILTRATION RATE > 60.0 (>42); GLUCOSE, FASTING 152 MG/DL (70-100); MB/CK RELATIVE INDEX 5.28 (< OR =4); POTASSIUM SERUM 4.5 MEQ/L (3.5-5.1); SODIUM LEVEL 136 MEQ/L (136-145)
[2020-01-26 13:23] LABS: ALBUMIN 3.7 GM/DL (3.2-5.2); BILIRUBIN,DIRECT 0.2 MG/DL (0.0-0.2); BILIRUBIN,TOTAL 0.9 MG/DL (0.2-1.0); FREE T4 1.11 NG/DL (0.76-1.46); LIPASE 92 U/L (73-393); NT-PRO BNP 1983 PG/ML (<125); TOTAL PROTEIN 7.5 GM/DL (6.4-8.2); TROPONIN I 0.13 NG/ML (< 0.10)
[2020-01-26] MEDS: NITROGLYCERIN 0.4 MG SUBL TABLET SL PRN ×3 (13:28→13:51)
[2020-01-26 13:51] VITALS: BP 112/74
[2020-01-26] MEDS ORDERED: CLOPIDOGREL 300 MG TAB (PLAVIX) PO STA (14:19)
[2020-01-26] MEDS ORDERED: HEPARIN SOD (PORCINE) 5000UNITS/ML 1ML VIAL/SYRINGE IV ONE (14:30)
[2020-01-26] MEDS ORDERED: HEPARIN DRIP 25,000 UNITS in IV 1 EA IV SCH (14:30)
[2020-01-26] MEDS ORDERED: MORPHINE 4 MG/ML 1ML VIAL/SYRINGE (J2270) IV ONE (14:45)
[2020-01-26 16:52] VITALS: BP 134/88
--- NOTE | 2020-01-26 20:34 | ECGEPIP ---
[facility] - ED Test Date: 2020-01-26 Pat Name: IRENE NEELY Department: Room: - Gender: Male Cash Person: Coni HECTOR : 1950 Requested By: HENRIQUE Glover Order Number: [id number] Reading MD: Birdie Donovan Measurements Intervals [place] Rate: 96 P: [place]: 0 QRS: 217 QRSD: 194 T: 46 QT: 455 QTc: 576 Interpretive Statements ELECTRONIC VENTRICULAR PACEMAKER ABNORMAL RHYTHM ECG SIMILAR 01/21/20 Electronically Signed on 01-26-2020 20:34:07 EDT by Birdie Donovan
== END 2020-01-26 17:02 | disposition short-term general hospital (02) ==
LOC: M ED 11:51
DX: I25.119 Atherosclerotic heart disease of native coronary artery with unspecified angina pectoris (principal); Z95.0 Presence of cardiac pacemaker; Z98.890 Other specified postprocedural states; I25.2 Old myocardial infarction; M19.90 Unspecified osteoarthritis, unspecified site; M51.9 Unspecified thoracic, thoracolumbar and lumbosacral intervertebral disc disorder; E55.9 Vitamin D deficiency, unspecified; Z95.5 Presence of coronary angioplasty implant and graft; F17.200 Nicotine dependence, unspecified, uncomplicated; Z88.8 Allergy status to other drugs, medicaments and biological substances; Z91.040 Latex allergy status; Z91.041 Radiographic dye allergy status; Z79.899 Other long term (current) drug therapy; Z79.891 Long term (current) use of opiate analgesic
CPT/HCPCS: 36415; 71046; 80048; 80076; 82550; 82553; 83690; 83880; 84439; 84443; 84484; 85025; 85610; 85730; 93005; 93041; 94760; 96374; 96375; 99285; J1644; J2270; U0002

== ENCOUNTER 2020-02-04 15:45 | Emergency (ER) | payer MEDICARE ==
[~2020-02-04] VITALS: Ht 172.7 cm; Wt 93.2 kg
[2020-02-04] MEDS ORDERED: AMIO400T5 PO (16:33)
[2020-02-04] MEDS ORDERED: ATOR80TA59 PO (16:37)
[2020-02-04] MEDS ORDERED: JANU100T PO (16:38)
[2020-02-04] MEDS ORDERED: TOPR25TA PO (16:40)
[2020-02-04] MEDS ORDERED: NITR0.4S14 SL (16:40)
--- NOTE | 2020-02-04 16:41 | REP ---
INDICATION: DYSPNEA/COUGH. COMPARISON: January 26, 2020.. TECHNIQUE: Upright AP portable chest radiograph. FINDINGS: Multilead pacemaker is again observed in the right heart via the left side. Median sternotomy wires are noted. Cardiomegaly is observed unchanged. Monitoring electrodes are visible. There is pleuro-parenchymal fibrosis in the right upper perihilar region unchanged. No new infiltrate is seen. Pulmonary vasculature is not increased. No acute bony abnormality. Pleural angles are sharp. IMPRESSION: Cardiomegaly post sternotomy with pacemaker. Otherwise no acute disease. <Electronically signed by Aryan Tobar > 02/04/20 [id number]
[2020-02-04] MEDS ORDERED: PRAS10TA2 PO (16:42)
[2020-02-04] MEDS ORDERED: XARE15TA PO (16:43)
[2020-02-04] MEDS ORDERED: TORS10TA3 PO (16:44)
[2020-02-04 16:47] LABS: BASO % 0.4 % (0.0-1.0); EOS # 0.3 10^3/uL (0.0-0.5); EOS % 3.7 % (0.0-3.0); HEMATOCRIT 39.9 % (42.0-52.0); HEMOGLOBIN 12.7 g/dl (13.5-17.5); LYMPH # 1.4 10^3/uL (1.5-5.0); LYMPH % 16.5 % (24.0-44.0); MEAN CORPUSCULAR HGB CONC 31.8 g/dl (32.0-36.5); MEAN CORPUSCULAR VOLUME 94.3 fl (80.0-96.0); MONO # 0.8 10^3/uL (0.0-0.8); MONO % 9.7 % (0.0-5.0); NEUTROPHILS # 5.8 10^3/uL (1.5-8.5); NEUTROPHILS % 69.2 % (36.0-66.0); PLATELET COUNT, AUTOMATED 244 10^3/uL (150-450); RED BLOOD COUNT 4.23 10^6/uL (4.30-6.10); WHITE BLOOD COUNT 8.3 10^3/uL (4.0-10.0)
[2020-02-04] MEDS ORDERED: traMADol 50 MG TAB PO ONE (17:15)
[2020-02-04 17:18] LABS: ALBUMIN 3.7 GM/DL (3.2-5.2); BILIRUBIN,DIRECT 0.2 MG/DL (0.0-0.2); BILIRUBIN,TOTAL 0.8 MG/DL (0.2-1.0); CALCIUM LEVEL 9.3 MG/DL (8.8-10.2); CK-MB VALUE MASS 1.9 NG/ML (<3.6); CREATININE FOR GFR 1.29 MG/DL (0.70-1.30); GLOMERULAR FILTRATION RATE 58.5 (>42); MB/CK RELATIVE INDEX 3.88 (< OR =4); POTASSIUM SERUM 4.4 MEQ/L (3.5-5.1); THYROID STIMULATING HORMONE 5.13 uIU/ML (0.358-3.740); THYROXINE (T4) 9.6 UG/DL (4.5-12.0); TOTAL PROTEIN 7.2 GM/DL (6.4-8.2); TROPONIN I 0.15 NG/ML (< 0.10)
[2020-02-04 17:25] LABS: INR 1.2; PROTHROMBIN TIME 15.5 SECONDS (12.5-14.3)
[2020-02-04] MEDS ORDERED: diphenhydrAMINE 50MG/ML VIAL (J1200) IV STA (17:35)
[2020-02-04] MEDS ORDERED: methylPREDNISolone 125MG 2ML VIAL IV ONE (17:45)
[2020-02-04] MEDS ORDERED: ISOVUE-370 76% 100ML VIAL As Ordered ONE (18:42)
--- NOTE | 2020-02-04 19:31 | REPVR ---
PROCEDURE INFORMATION: Exam: CT Abdomen And Pelvis With Contrast Exam date and time: 02/04/2020 6:47 PM Age: 69 years old Clinical indication: Abdominal pain; Generalized TECHNIQUE: Imaging protocol: Computed tomography of the abdomen and pelvis with intravenous contrast. Radiation optimization: All CT scans at this facility use at least one of these dose optimization techniques: automated exposure control; mA and/or kV adjustment per patient size (includes targeted exams where dose is matched to clinical indication); or iterative reconstruction. Contrast material: ISOVUE 370; Contrast volume: 100 ml; Contrast route: INTRAVENOUS (IV); COMPARISON: CT ABD PELVIS W/O CONTRAST 05/09/2013 11:48 PM FINDINGS: Liver: Normal. No mass. Gallbladder and bile ducts: There are gallstones present. No evidence of cholecystitis demonstrated. Pancreas: Normal. No ductal dilation. Spleen: Normal. No splenomegaly. Adrenal glands: Right adrenal adenoma measures 2.5 cm. Kidneys and ureters: Bilateral simple renal cysts measure up to 3.2 cm in diameter. Stomach and bowel: Diverticulosis coli without diverticulitis. Appendix: No evidence of appendicitis. Intraperitoneal space: Unremarkable. No free air. No significant fluid collection. Vasculature: The aortoiliac vessels demonstrate moderate atherosclerotic calcification. Lymph nodes: Unremarkable. No enlarged lymph nodes. Urinary bladder: Unremarkable as visualized. Reproductive: Unremarkable as visualized. Bones/joints: Status post posterior interbody fusion of L4-S1. Severe central spinal stenosis L2-L3 and L3-L4. Status post L5 bilateral laminectomy. Soft tissues: Unremarkable. IMPRESSION: 1. There are gallstones present. No evidence of cholecystitis demonstrated. 2. Bilateral simple renal cysts measure up to 3.2 cm in diameter. 3. Diverticulosis coli without diverticulitis. COMMENTS: Consistent with the [place] [employer]'s Incidental Findings Committee white paper (J Am Andre Radiol 2018): Any incidental renal lesion less than 1 cm or classified as too small to characterize, or any incidental cystic renal lesion characterized as simple-appearing, is likely benign. No follow-up imaging is recommended for these lesions per consensus recommendations based on imaging criteria. Electronically signed by: Jerman Viveros On 02/04/2020 19:31:24 PM
--- NOTE | 2020-02-04 19:40 | REPVR ---
PROCEDURE INFORMATION: Exam: CT Angiography Chest With Contrast Exam date and time: 02/04/2020 6:47 PM Age: 69 years old Clinical indication: Chest pain; Radiating; Additional info: Back pain, recent hospitalization TECHNIQUE: Imaging protocol: Computed tomographic angiography of the chest with intravenous contrast. 3D rendering (Not supervised by radiologist): MIP and/or 3D reconstructed images were created by the technologist. Radiation optimization: All CT scans at this facility use at least one of these dose optimization techniques: automated exposure control; mA and/or kV adjustment per patient size (includes targeted exams where dose is matched to clinical indication); or iterative reconstruction. Contrast material: ISOVUE 370; Contrast volume: 100 ml; Contrast route: INTRAVENOUS (IV); COMPARISON: CT ANGIO CHEST 01/07/2020 8:26 PM FINDINGS: Pulmonary arteries: There are no pulmonary emboli. Aorta: There is fusiform dilatation of the ascending thoracic aorta which measures 5.1 cm. maximally. There is no saccular component. Insufficient contrast in the thoracic aorta to exclude a dissection. Lungs: Subpleural parenchymal scarring right upper lobe. Pleural based noncalcified nodule right lower lobe measures 1.2 cm. 1.6 cm noncalcified nodule abuts the major fissure on the right. Findings appear stable and may represent scarring. Bibasilar atelectasis. Resolution of previously demonstrated bilobed nodular opacity at the left major fissure. Finding may have represented loculated fluid. Pleural space: Unremarkable. No pneumothorax. No pleural effusion. Heart: Status post CABG. Small pericardial effusion. There is severe atherosclerotic calcification of the coronary arteries. Status post aortic valve replacement. Lymph nodes: Calcified right and left hilar lymph nodes. Mediastinal lymphadenopathy, likely postinflammatory. Bones/joints: The spine demonstrates moderate degenerative changes. Soft tissues: Calcified granulomata left lower and right lower lobes. IMPRESSION: 1. Pleural based noncalcified nodule right lower lobe measures 1.2 cm. 1.6 cm noncalcified nodule abuts the major fissure on the right. Findings appear stable and may represent scarring. Based on stability of findings follow-up in 12 months suggested or sooner if clinically desired. 2. There is fusiform dilatation of the ascending thoracic aorta which measures 5.1 cm. maximally. There is no saccular component. Insufficient contrast in the thoracic aorta to exclude a dissection. 3. Status post CABG. 4. Small pericardial effusion. 5. There are no pulmonary emboli. Electronically signed by: Jerman Viveros On 02/04/2020 19:40:13 PM
[2020-02-04 20:15] VITALS: BP 110/64
--- NOTE | 2020-02-05 07:53 | ECGEPIP ---
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
--- NOTE | 2020-02-05 08:56 | ED PDOC ---
Post-Departure Follow-Up dr gonzales faxed formal report of cta chest for fu Aditi Mathur MD Feb 05, 2020 08:56
== END 2020-02-04 20:38 | disposition home or self-care (01) ==
LOC: M ED 15:45
DX: I71.2 Thoracic aortic aneurysm, without rupture (principal); R10.84 Generalized abdominal pain; R91.8 Other nonspecific abnormal finding of lung field; I31.3 Pericardial effusion (noninflammatory); Z95.0 Presence of cardiac pacemaker; Z95.1 Presence of aortocoronary bypass graft; I25.10 Atherosclerotic heart disease of native coronary artery without angina pectoris; I25.2 Old myocardial infarction; I51.7 Cardiomegaly; Z86.73 Personal history of transient ischemic attack (TIA), and cerebral infarction without residual deficits; F17.200 Nicotine dependence, unspecified, uncomplicated; Z91.041 Radiographic dye allergy status; Z91.040 Latex allergy status; Z79.899 Other long term (current) drug therapy
CPT/HCPCS: 71045; 71275; 74177; 80048; 80076; 82550; 82553; 83880; 84436; 84443; 84484; 85025; 85610; 93005; 93041; 94760; 96374; 96375; 99285; J1200; J2930; Q9967

== ENCOUNTER 2020-04-06 12:44 | Inpatient (IN) | payer MEDICARE ==
[2020-04-06] VITALS (15 sets, daily range): BP systolic 87–160; BP diastolic 56–92
[~2020-04-06] VITALS: Ht 177.8 cm; Wt 92.2 kg
[~2020-04-06 12:44] MED LIST changes: +AMIO400T5 PO; +JANU100T PO; +NITR0.4S14 SL; +PRAS10TA2 PO; +TOPR25TA PO; +TORS10TA3 PO; +XARE15TA PO
[2020-04-06] MEDS ORDERED: PANTOPRAZOLE 40MG VIAL (C9113 PER 1) IV ONE (13:00)
[2020-04-06] MEDS ORDERED: ONDANSETRON 4MG/2ML VIAL IV ONE (13:00)
[2020-04-06] MEDS ORDERED: NS 1,000 ML IV ONE ×2 (13:00→13:15)
[2020-04-06] MEDS ORDERED: JANU100T PO (13:26)
--- NOTE | 2020-04-06 13:28 | REP ---
INDICATION: luq abd pain COMPARISON: 02/04/2020 TECHNIQUE: Axial noncontrast images from the lung bases to the pubic symphysis with coronal and sagittal reformations. This CT examination was performed using the following dose reduction techniques: Automated exposure control, adjustment of mA and/or kv according to the patient's size, and use of iterative reconstruction technique. FINDINGS: The spleen has essentially been replaced by a large heterogeneous complex hemorrhagic collection measuring greater than 14 x 13 x 13 cm along with small to moderate amount of hemorrhagic ascites in a left upper quadrant and perihepatic distribution extending along the pericolic gutters into the pelvis. Correlation with recent trauma is recommended. Findings are most compatible with splenic trauma versus hemorrhagic infarction to the spleen. Liver, pancreas, gallbladder, bilateral adrenal glands are normal. Kidneys demonstrate stable hypodensities compatible with cysts and no perinephric stranding or hydronephrosis. The enteric system is without obstruction or acute inflammatory process. Colonic diverticulosis noted without acute diverticulitis. Pelvis demonstrates normal bladder and age-appropriate prostate/seminal vesicles. Atherosclerotic changes to the aorta and vasculature noted without aneurysm. Musculoskeletal structures demonstrate degenerative changes and prior lumbosacral fixation. Lung bases demonstrate fibrosis and scarring with minimal atelectasis. IMPRESSION: Large complex hemorrhagic collection replaces the spleen with small to moderate amount of hemorrhagic ascites. Differential diagnosis includes splenic trauma and hemorrhagic infarction. <Electronically signed by Duglas Cesar > 04/06/20 [id number]
[2020-04-06 13:35] LABS: BASO % 0.2 % (0.0-1.0); EOS # 0.1 10^3/uL (0.0-0.5); EOS % 0.3 % (0.0-3.0); HEMATOCRIT 33.7 % (42.0-52.0); HEMOGLOBIN 10.4 g/dl (13.5-17.5); LYMPH # 1.2 10^3/uL (1.5-5.0); LYMPH % 7.7 % (24.0-44.0); MEAN CORPUSCULAR HEMOGLOBIN 31.6 pg (27.0-33.0); MEAN CORPUSCULAR HGB CONC 30.9 g/dl (32.0-36.5); MEAN CORPUSCULAR VOLUME 102.4 fl (80.0-96.0); MONO # 0.9 10^3/uL (0.0-0.8); MONO % 5.7 % (0.0-5.0); NEUTROPHILS # 13.7 10^3/uL (1.5-8.5); NEUTROPHILS % 85.3 % (36.0-66.0); PLATELET COUNT, AUTOMATED 178 10^3/uL (150-450); RED BLOOD COUNT 3.29 10^6/uL (4.30-6.10); WHITE BLOOD COUNT 16.1 10^3/uL (4.0-10.0)
[2020-04-06 13:56] LABS: ALBUMIN 3.3 GM/DL (3.2-5.2); ALT/SGPT 12 U/L (12-78); BILIRUBIN,DIRECT 0.1 MG/DL (0.0-0.2); BILIRUBIN,TOTAL 0.5 MG/DL (0.2-1.0); BLOOD UREA NITROGEN 24 MG/DL (7-18); CALCIUM LEVEL 8.3 MG/DL (8.8-10.2); CARBON DIOXIDE LEVEL 23 MEQ/L (21-32); CHLORIDE LEVEL 107 MEQ/L (98-107); CREATININE FOR GFR 1.18 MG/DL (0.70-1.30); GLOMERULAR FILTRATION RATE > 60.0 (>42); GLUCOSE, FASTING 212 MG/DL (70-100); LIPASE 81 U/L (73-393); POTASSIUM SERUM 4.5 MEQ/L (3.5-5.1); SODIUM LEVEL 137 MEQ/L (136-145); TOTAL PROTEIN 6.8 GM/DL (6.4-8.2)
[2020-04-06 13:57] LABS: INR 1.18; PROTHROMBIN TIME 15.3 SECONDS (12.5-14.3)
[2020-04-06 14:25] LABS: RSV AMPLIFICATION NEGATIVE (NEGATIVE)
--- NOTE | 2020-04-06 14:41 | ECGEPIP ---
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
[2020-04-06] MEDS ORDERED: AMIO200T3 PO (14:56)
[2020-04-06] MEDS ORDERED: LR 1,000 ML IV STA (14:56)
[2020-04-06] MEDS ORDERED: D-20TAB PO (14:56)
[2020-04-06] MEDS ORDERED: MORPHINE 2 MG/ML 1ML VIAL (J2270) IV PRN ×2 (15:00→18:45)
[2020-04-06] MEDS ORDERED: LR 1,000 ML IV SCH ×2 (15:30→19:00)
[2020-04-06] MEDS ORDERED: LR 1,000 ML IV ONE (16:00)
[2020-04-06] MEDS ORDERED: ETOMIDATE INJ 20MG/10ML VIAL As Ordered ONE (16:22)
[2020-04-06] MEDS ORDERED: SUCCINYLCHOLINE 100 MG/5 ML SYRINGE (J0330) As Ordered ONE (16:23)
[2020-04-06] MEDS ORDERED: ROCURONIUM BROMIDE 50 MG/5 ML VIAL As Ordered ONE ×2 (16:23→17:06)
[2020-04-06] MEDS ORDERED: fentaNYL 250 MCG/5 ML INJECTION (J3010) As Ordered ONE (16:28)
[2020-04-06] MEDS ORDERED: KETAMINE HCL 200 MG/20 ML VIAL As Ordered ONE (16:28)
[2020-04-06] MEDS ORDERED: MIDAZOLAM INJ 2MG/2ML VIAL (J2250 PER 1MG) As Ordered ONE (16:55)
[2020-04-06] MEDS ORDERED: ONDANSETRON 4MG/2ML VIAL As Ordered ONE (17:22)
[2020-04-06] MEDS ORDERED: dexameTHASONE 4 MG/ML 1ML VIAL (J1100 PER 1MG) As Ordered ONE (17:22)
[2020-04-06] MEDS ORDERED: SUGAMMADEX SODIUM 500 MG/5 ML VIAL (BRIDION) As Ordered ONE (17:24)
--- NOTE | 2020-04-06 17:34 | CR ---
CONSULTATION DATE: 04/06/2020 REQUESTING PHYSICIAN: Faizan Dillon MD REASON FOR CONSULTATION: Arnoldo Dobson is a 69-year-old patient of Dr. Maxi Dorsey, his web site administrator Dr. Urias of [facility] cardiology. The hospitalist group is asked to see the patient in urgent consultation. The patient presented to the emergency room with severe abdominal pain, was found to have a massive hemorrhage into the spleen, "the spleen has essentially been replaced by a large heterogeneous, complex hemorrhagic collection measuring greater than 14 x 13 x 13 cm." The patient is shocky, hypotensive and in Trendelenburg upon my arrival. Pressures were initially in the 60s. Now they are in the 80s-90s. He has received extensive fluid boluses and blood. He is on anticoagulant with Xarelto 15 mg daily as well as antiplatelet medicines with prasugrel. He was in the emergency room in February, had a CT of the abdomen and pelvis done at that time. The spleen was normal. I have a call into Dr. Garcia from [facility] cardiology who provide with some detail. The patient was shocky and in too much pain to provide medical history. 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 He was hospitalized in 2013 after having a sudden embolic event of the left lower extremity as well as embolic stroke. These both occurred 06/16. 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 He said he was in "a body cast for six months" in the . He has history of pancreatitis. He has a history of depression and anxiety as well as arthritis of the various joints. PAST SURGICAL HISTORY: He reportedly has a pacemaker defibrillator, status post aortic valve replacement with a porcine bioprosthetic aortic valve in 2011, left knee surgery in 2009. He had an appendectomy, elbow surgery and spinal fusion. ALLERGIES: HE IS ALLERGIC TO PLAVIX. He is currently taking prasugrel without problem. HE IS ALSO ALLERGIC TO CONTRAST MEDIA AND LASIX. SOCIAL HISTORY: He is , retired [employer], pack a day smoker. FAMILY HISTORY: Mother of stroke. Father of [place] and a sibling of an [place]. MEDICATIONS: Xanax 0.25 mg t.i.d. p.r.n., Amiodarone 200 mg daily, atorvastatin 80 mg daily, vitamin D 50 mcg daily, lisinopril 5 mg daily, metformin XR 500 mg b.i.d., metoprolol succinate XL 25 mg daily, Nitrostat p.r.n., oxycodone/acetaminophen one at bedtime, prasugrel 10 mg daily, Xarelto 15 mg daily, Januvia 100 mg daily, torsemide 10 mg daily, Tramadol 50 mg q.4 hours p.r.n. REVIEW OF SYSTEMS: He says he is in "excruciating pain worse than when I broke my back." He is short of when he tries to take a deep inspiration. He denies any chest pain. PHYSICAL EXAMINATION: Systolic pressure between 80 and 90, pulse of 80, respiratory rate 18, 96.7 degrees. General: He is pale, clammy and very uncomfortable. HEENT: Grossly unremarkable. Lungs: Clear. Heart: Regular rate and rhythm, I/ systolic ejection murmur. Abdomen: Tender on the left side. I did not attempt deep palpation. He is very tender on his left mid-abdomen. Extremities: No clubbing, cyanosis or edema. Neurologic exam: Grossly normal, moved arms and legs with equal strength. LABS: White count is 61. Hemoglobin is 10.4 (12.7 on 02/04/20), platelets 178. Sodium 137, potassium 4.5, BUN 24, creatinine 1.1, glucose 211. Lactic acid 4.4. INR 1.1. SARS screen is negative. IMPRESSION: 1. Hypotensive shock, patient with a spontaneous atraumatic splenic hemorrhage. The case was discussed with Dr. Dillon. He will be the attending physician. The patient has received several boluses of saline as well as an unspecified amount of blood. The nurse asked me for a stat order during my exam to address his hypotension so I ordered a liter of lactated Ringer's and infuse as fast as possible. The patient case was discussed with Dr. Dillon who is making decisions concerning surgical intervention. 2. History of embolism with stroke and left lower extremity embolism. The patient is on Xarelto as an antithrombotic. Last dose was over 24 hours ago. I called pharmacy. The patient does not qualify for a thrombin complex concentrate. The last dose was long enough ago that it is not needed. Unfortunately, the patient is on an aggressive antiplatelet medication with prasugrel which will increase his bleeding risk in surgery as well. 3. Coronary artery disease, status post stenting of unspecified vessel. Obviously we are holding all of his antihypertensives. He is on prasugrel which increases his bleeding risk significantly during surgery. Dr. Garcia is aware that the patient is in the emergency room. He is not formally consulted at this point but he is aware and available. He is currently getting records for me to complete my consultation. 4. Diabetes. Sliding scale insulin coverage postoperatively. 5. Hyperlipidemia. Restart atorvastatin once he is taking p.o. postoperatively. 6. History of congestive heart failure. I am awaiting records from Dr. Garcia. I am sure what the patient's ejection fraction is. Obviously his diuretics and antihypertensives are on hold. 7. Chronic anxiety. He uses Xanax on a p.r.n. basis. He is at risk of withdrawing from this if he uses it as often as prescribed. I will have to watch for this postoperatively.
--- NOTE | 2020-04-06 17:41 | HPE ---
HISTORY AND PHYSICAL DATE OF ADMISSION: 04/06/2020 ADMITTING DIAGNOSIS: Spontaneous splenic rupture. HISTORY OF PRESENT ILLNESS: The patient is a pleasant 69-year-old man who presented to the emergency department at approximately 12:44 in the afternoon of April 06 complaining of severe abdominal pain. He reports that he had awakened early in the morning at approximately 3 o'clock in the morning. He sat up, watched a little TV, and had a little coffee. At about 7:30 in the morning, he noted the sudden onset of severe discomfort in the left upper abdomen. This discomfort became more diffuse over time. In the emergency department, he was evaluated with a CT scan that showed evidence for bleeding in and around the spleen with some free fluid around the liver and, to a lesser extent, some free fluid in the pelvis. His initial vital signs shows a pulse of approximately 80 with a blood pressure of 85/62, which improved following a bolus of normal saline to the low 100s. I was consulted to evaluate the patient. He denies any history of recent abdominal trauma. Interestingly, he had a CT scan of the abdomen and pelvis approximately 2 months ago for evaluation of abdominal discomfort, and at that time his spleen was normal. The study was done with contrast, and there was no evidence of a splenic aneurysm. ALLERGIES: Noted to CLOPIDOGREL, which leads to stomach upset, and LATEX causes contact blisters. He reports that contrast media can give him dry heaves or sweats. MEDICATIONS: Reported at the time of admission include: - Tramadol 50 mg every 4 hours as needed for pain - a multivitamin daily - lisinopril 5 mg by mouth daily at bedtime - metformin 500 mg ER tablets twice daily - oxycodone/acetaminophen tablets 5/325, one tablet daily at bedtime - alprazolam 0.25 mg by mouth three times a day as needed for anxiety - atorvastatin 80 mg by mouth daily at bedtime - metoprolol succinate 25 mg by mouth daily in the morning - nitroglycerin sublingual 0.4 mg tablets as needed for chest pain - prasugrel hydrochloride 10 mg by mouth daily - rivaroxaban 15 mg by mouth daily in the afternoon with supper - torsemide 10 mg by mouth daily - sitagliptin 100 mg by mouth daily in the morning - vitamin D3 at 50 mcg by mouth daily - amiodarone 200 mg by mouth daily MEDICAL HISTORY: Significant for hypertension and atherosclerotic coronary disease. He has had cardiac valvular disease. He has a history of chronic back pain and neck pain. He has a history of congestive heart failure and atrial fibrillation. He has a pacemaker defibrillator in place. His medical record reports a history of sleep apnea, but he is on no treatment for this. SURGICAL HISTORY: In 2011 the patient had undergone an aortic valve replacement with a porcine valve. Recently in December 2019 he underwent repeat heart surgery with replacement of two valves, presumably his aortic and mitral valve. He has had recent coronary stenting. He has had coronary artery bypass grafting previously. He had back surgery involving placement of stabilizing rods 30 years ago. He had an appendectomy in the distant past. He had some sort of benign neck tumor resected on the right, and he has had a previous surgery for ligamentous damage of his left elbow. His pacemaker defibrillator was apparently implanted with his more recent cardiac surgery. SOCIAL HISTORY: Patient is . He is a current smoker but denies any significant alcohol use. FAMILY HISTORY: Noncontributory. REVIEW OF SYSTEMS: Patient has not had any recent chest pain. He denies any cough, wheezing, or sputum production. He denies any history of transient ischemic attack (TIA). He has had no dysuria or hematuria. He does report some constipation and has had some weight loss. He denies any melena or hematochezia. He has had no recent extremity problems but does complain of persistent back discomfort. PHYSICAL EXAMINATION: Patient is lying on the hospital stretcher in the emergency department complaining of back pain. He is complaining of thirst. His most recent blood pressure is 84/59, though his pulse remains at 80. He is alert and appropriate. Sclerae are anicteric. Mucous membranes are dry. Neck is supple. Heart exam shows a regular rhythm. The lungs are clear. The abdomen is nondistended. He does have a few bowel sounds present. He has some tenderness in the left upper quadrant. Extremities show some weakly palpable dorsalis pedis and radial pulses. His laboratory studies from 1:15, that is 1315, showed a white count of 16, hemoglobin 10, hematocrit 34, and a platelet count of 178,000. His coagulations showed a PT of 15, INR of 1.18. His chemistries showed sodium 137, potassium 4.5, chloride 107, CO2 of 23, BUN 24, creatinine 1.2, and a glucose of 212. His lactic acid was 4.4. Liver function tests were normal. His COVID serology is negative. Abdominal CT I reviewed personally and does show a hemorrhagic mass involving the spleen. IMPRESSION: Patient apparently has suffered a spontaneous rupture of the spleen. His pressure had stabilized initially after 2 liters of normal saline, but he is now somewhat more hypotensive and complaining of pain with dry mouth and thirst. He is receiving an additional bolus of fluid, and I have ordered the first units of packed red blood cells. I had been hoping that we would be able to manage this nonoperatively, but it seems that we are headed in the direction of going to the operating room urgently. I will continue to monitor him closely over the next short time, as he receives blood, but I will also alert the operating room to be available in the event that we must proceed.
--- NOTE | 2020-04-06 17:47 | CR ---
CONSULTATION DATE: 04/06/[address] Garcia graciously provided me with some medical records on this patient. He has undergone coronary artery bypass graft (CABG) in the past. Had percutaneous transluminal coronary angioplasty (PTCA) with a drug-eluting stent January 2020, for which he is now on the prasugrel. He has congestive heart failure with a reduced ejection fraction, ejection fraction (EF) of 35%. He has biventricular automatic implantable cardioverter defibrillator (AICD). He has a bioprosthetic aortic valve, history of atrial fibrillation, thoracic aortic aneurysm, 5.1 cm, moderate right internal carotid artery disease. He notes the patient has AICD, and the magnet needs to be applied to the battery during surgery. Dr. Dillon was made aware of this to alert anesthesia.
[2020-04-06] MEDS ORDERED: ACETAMINOPHEN 1000MG 100ML IV BTL (OFIRMEV) (J0131 PER 10MG) As Ordered ONE (17:50)
[2020-04-06] MEDS: HumaLOG INSULIN (NovoLOG) PER UNIT SC SCH ×2 (18:00→23:34)
[2020-04-06] MEDS ORDERED: ONDANSETRON 4MG/2ML VIAL IV PRN ×2 (18:45→19:00)
[2020-04-06] MEDS ORDERED: HYDROMORPHONE HCL 0.5 MG/ 0.5 ML SYRINGE (J1170 PER 1) As Ordered ONE ×2 (18:47→19:13)
[2020-04-06] MEDS: HYDROMORPHONE HCL 0.5 MG/ 0.5 ML SYRINGE (J1170 PER 1) IV PRN ×2 (18:50→19:15)
[2020-04-06] MEDS ORDERED: fentaNYL 100 MCG/2 ML INJECTION (J3010) IV PRN (19:00)
[2020-04-06] MEDS ORDERED: METOCLOPRAMIDE INJ 10MG/2ML VIAL (J2765 PER 1) IV PRN (19:00)
[2020-04-06 19:04] LABS: BASO % 0.2 % (0.0-1.0); EOS % 0.1 % (0.0-3.0); HEMATOCRIT 37.8 % (42.0-52.0); LYMPH # 1.3 10^3/uL (1.5-5.0); LYMPH % 7.5 % (24.0-44.0); MEAN CORPUSCULAR HEMOGLOBIN 30.2 pg (27.0-33.0); MEAN CORPUSCULAR HGB CONC 31.7 g/dl (32.0-36.5); MEAN CORPUSCULAR VOLUME 95.2 fl (80.0-96.0); MONO # 1.4 10^3/uL (0.0-0.8); MONO % 8.4 % (0.0-5.0); NEUTROPHILS % 83.4 % (36.0-66.0); PLATELET COUNT, AUTOMATED 125 10^3/uL (150-450); RED BLOOD COUNT 3.97 10^6/uL (4.30-6.10); WHITE BLOOD COUNT 16.8 10^3/uL (4.0-10.0)
[2020-04-06] MEDS ORDERED: oxyCODONE 5MG TAB As Ordered ONE ×2 (19:13→19:33)
[2020-04-06] MEDS: oxyCODONE 5MG TAB PO PRN ×2 (19:15→19:36)
[2020-04-06 19:19] LABS: INR 1.17; PROTHROMBIN TIME 15.2 SECONDS (12.5-14.3)
[2020-04-06 19:40] LABS: ALBUMIN 2.8 GM/DL (3.2-5.2); ALT/SGPT 15 U/L (12-78); AMYLASE 19 U/L (25-115); BILIRUBIN,TOTAL 1.2 MG/DL (0.2-1.0); BLOOD UREA NITROGEN 23 MG/DL (7-18); CALCIUM LEVEL 7.2 MG/DL (8.8-10.2); CARBON DIOXIDE LEVEL 22 MEQ/L (21-32); CHLORIDE LEVEL 112 MEQ/L (98-107); CREATININE FOR GFR 1.02 MG/DL (0.70-1.30); GLOMERULAR FILTRATION RATE > 60.0 (>42); GLUCOSE, FASTING 184 MG/DL (70-100); SODIUM LEVEL 141 MEQ/L (136-145); TOTAL PROTEIN 5.4 GM/DL (6.4-8.2)
[2020-04-06] MEDS: AMIODARONE 200 MG TAB (PACERONE) PO SCH (20:34)
[2020-04-06] MEDS: METOPROLOL SUCC *XL* 25MG TAB (TopROL *XL*) PO SCH (20:35)
[2020-04-06] MEDS: lisinopriL 5 MG TAB PO SCH (21:00)
[2020-04-06] MEDS: NS 1,000 ML IV SCH (22:44)
[2020-04-06] MEDS: ALPRAZolam 0.25 MG TAB PO PRN (23:34)
[2020-04-06 23:44] LABS: BLOOD UREA NITROGEN 25 MG/DL (7-18); CALCIUM LEVEL 7.7 MG/DL (8.8-10.2); CARBON DIOXIDE LEVEL 22 MEQ/L (21-32); CHLORIDE LEVEL 109 MEQ/L (98-107); CREATININE FOR GFR 1.13 MG/DL (0.70-1.30); GLOMERULAR FILTRATION RATE > 60.0 (>42); GLUCOSE, FASTING 188 MG/DL (70-100); POTASSIUM SERUM 5.4 MEQ/L (3.5-5.1); SODIUM LEVEL 137 MEQ/L (136-145)
[2020-04-07] VITALS (31 sets, daily range): BP systolic 102–140; BP diastolic 57–86
[2020-04-07] MEDS: MORPHINE 4 MG/ML 1ML VIAL/SYRINGE (J2270) IV PRN ×7 (01:05→23:01)
[2020-04-07] MEDS ORDERED: CEPACOL LOZENGE PO ONE (03:30)
[2020-04-07 05:14] LABS: BASO % 0.2 % (0.0-1.0); HEMATOCRIT 34.1 % (42.0-52.0); HEMOGLOBIN 10.9 g/dl (13.5-17.5); LYMPH # 1.5 10^3/uL (1.5-5.0); LYMPH % 13.2 % (24.0-44.0); MEAN CORPUSCULAR HEMOGLOBIN 29.6 pg (27.0-33.0); MEAN CORPUSCULAR VOLUME 92.7 fl (80.0-96.0); MONO # 1.4 10^3/uL (0.0-0.8); MONO % 12.9 % (0.0-5.0); NEUTROPHILS # 8.1 10^3/uL (1.5-8.5); NEUTROPHILS % 73.2 % (36.0-66.0); PLATELET COUNT, AUTOMATED 122 10^3/uL (150-450); RED BLOOD COUNT 3.68 10^6/uL (4.30-6.10)
[2020-04-07 05:41] LABS: ALBUMIN 2.8 GM/DL (3.2-5.2); ALT/SGPT 13 U/L (12-78); AMYLASE 15 U/L (25-115); BILIRUBIN,TOTAL 1.3 MG/DL (0.2-1.0); BLOOD UREA NITROGEN 25 MG/DL (7-18); CALCIUM LEVEL 7.8 MG/DL (8.8-10.2); CARBON DIOXIDE LEVEL 23 MEQ/L (21-32); CHLORIDE LEVEL 109 MEQ/L (98-107); CREATININE FOR GFR 1.06 MG/DL (0.70-1.30); GLOMERULAR FILTRATION RATE > 60.0 (>42); GLUCOSE, FASTING 160 MG/DL (70-100); POTASSIUM SERUM 4.9 MEQ/L (3.5-5.1); SODIUM LEVEL 137 MEQ/L (136-145); TOTAL PROTEIN 5.9 GM/DL (6.4-8.2)
[2020-04-07] MEDS: HumaLOG INSULIN (NovoLOG) PER UNIT SC SCH ×3 (06:09→17:26)
[2020-04-07] MEDS: NS 1,000 ML IV SCH (08:51)
[2020-04-07] MEDS: PANTOPRAZOLE 40MG VIAL (C9113 PER 1) IV SCH (08:52)
[2020-04-07] MEDS: AMIODARONE 200 MG TAB (PACERONE) PO SCH (08:52)
[2020-04-07] MEDS: ALPRAZolam 0.25 MG TAB PO PRN ×3 (08:52→23:59)
[2020-04-07] MEDS: METOPROLOL SUCC *XL* 25MG TAB (TopROL *XL*) PO SCH (08:52)
[2020-04-07] MEDS ORDERED: CEPACOL LOZENGE PO PRN (09:15)
--- NOTE | 2020-04-07 10:14 | REP ---
INDICATION: evaluate for atelectasis or effusion COMPARISON: 02/04/2020 TECHNIQUE: Portable AP view of the chest FINDINGS: Examination is limited by poor inspiratory effort and underpenetration. Left perihilar and left lower lobe consolidations along with right mid to lower lobe airspace disease consistent with multifocal pneumonia. Correlation is required. No effusion. No pneumothorax. Evidence for prior sternotomy and CABG along with pacemaker. Skeletal structures are intact. IMPRESSION: Findings compatible with multifocal pneumonia (left greater than right). <Electronically signed by Duglas Cesar > 04/07/20 1010
[2020-04-07] MEDS: SENOKOT S TAB PO SCH ×2 (10:39→20:01)
--- NOTE | 2020-04-07 12:47 | IPN ---
PROGRESS NOTE DATE: 04/07/2020 ADDENDUM I have one more thing to add to my dictation from earlier. PROBLEM LIST: Type-2 diabetes. His home medicines are on hold. He is on sliding scale Insulin with coverage. Blood sugars are under good control at this time.
[2020-04-07] MEDS: TORSEMIDE 10 MG TABLET PO SCH (12:52)
[2020-04-07] MEDS: oxyCODONE 5MG TAB PO PRN ×2 (13:18→20:02)
[2020-04-07] MEDS: LIDOCAINE 4% CREAM 5GM (LMX4) TOP PRN (14:31)
[2020-04-07] MEDS: ANALGESIC BALM CRM 120 GM TOP PRN ×2 (14:31→22:55)
--- NOTE | 2020-04-07 15:55 | IPN ---
PROGRESS NOTE DATE: 04/07/2020 SUBJECTIVE: Arnoldo survived his episode yesterday, recovering from surgery in PCU. He is thirsty. He feels weak but actually looks much better than I was expecting. He has a lot of pain related to the surgery as well as pain over his shoulders. It is probably referred from diaphragmatic involvement. Denies any chest pain or shortness of breath, fevers or chills. PHYSICAL EXAMINATION: VITAL SIGNS: Blood pressure 129/73, pulse 92, respirations 18, 95% O2 saturation. GENERAL APPEARANCE: Alert, conversant, no distress. LUNGS: Decreased breath sounds but clear. HEART: Regular rate and rhythm, a 1/6 systolic ejection murmur. ABDOMEN: Dressed, diffusely mildly tender. EXTREMITIES: No peripheral edema. NEUROLOGIC: Alert, oriented, conversant. LABS: White count 11, hemoglobin 10.9, platelets 122. Sodium 137, potassium 4.7, BUN 25, creatinine 1.0. Glucose 160. IMPRESSION AND PLAN: 1. Status post spontaneous hemorrhage into spleen status post presumed splenectomy (operative report pending) with extensive transfusions. He is stable. His urine output was a little low this morning but has picked up to 50 mL per hour now. Fluids are per Surgery as well as diet per Surgery. 2. Coronary artery disease status post recent drug-eluting stent January 24. He should resume Prasugrel as soon as acceptable by Surgery. He is at risk of stent thrombosis off his anti-platelet medication. 3. Congestive heart failure. Reduced ejection fraction. Last ejection fraction 35%. He has an ICD in place. No signs of volume overload on exam. He will be at risk of congestive heart failure from the fluids. 4. History of atrial fibrillation. He is off his Xarelto for now. This will need to be restarted when acceptable to the Surgical service. 5. History of polymyalgia rheumatica. He apparently had PMR several years ago. Has onset postoperatively and the stress of surgery can sometimes trigger recurrence of PMR. He develops shoulder or hip girdle stiffness and pain. Would consider this as a diagnosis and work up appropriately.
[2020-04-07] MEDS: lisinopriL 5 MG TAB PO SCH (20:01)
[2020-04-07] MEDS ORDERED: HumaLOG INSULIN (NovoLOG) PER UNIT SC SCH (21:00)
--- NOTE | 2020-04-07 21:26 | IPN ---
PROGRESS NOTE DATE: 04/07/2020 SUBJECTIVE: The patient is now postop day number one from an open emergency splenectomy for bleeding following non-traumatic rupture of the spleen. He received 6 units of packed red blood cells, one unit of fresh frozen plasma and one pheresis pack of platelets in addition to multiple liters of crystalloid. He was maintained in the Intensive Care Unit overnight. Vital signs show that he has remained afebrile since the surgery. His pulse has ranged from the high 80's into the low 100's today. Blood pressure has been excellent. Oxygen saturation on several liters of nasal cannula oxygen is in the mid 90's. Intake and output show that yesterday he had an estimate of 9 liters of intravenous fluids with 3,000 mL of blood loss and 450 mL of urine output. PHYSICAL EXAMINATION: GENERAL APPEARANCE: The patient is sitting up in bed. He is complaining of upper abdominal pain. He is also complaining of shoulder pain and back pain which are longstanding issues for him. He is otherwise alert and seems oriented. HEENT: Sclerae are anicteric. SKIN: Warm and dry. HEART: Regular rhythm at about 90-100. LUNGS: Generally clear with a few crackles in the left base with some suggestion of decreased breath sounds in this area. ABDOMEN: Mildly distended. His dressing is dry on his midline incision. GENITOURINARY: A Rosas catheter is in place and is draining clear yellow urine. LABORATORY STUDIES: White count of 11, hemoglobin 11, hematocrit 34 and a platelet count of 122,000. Differential count shows 73% neutrophils, 13% lymphocytes and 13% monocytes. Chemistry profile shows sodium 137, potassium 4.9, chloride 109, CO2 of 23, BUN of 25, creatinine 1.0 and a glucose of 160. Total protein is 5.9 with an albumin of 2.8. IMAGING: A chest x-ray was done this morning. This was a portable view. His inspiratory effort was poor. He did have evidence for some free air below the left hemidiaphragm. There was some significant atelectasis in the left lower lobe but also some patchy atelectasis on the right. IMPRESSION: Overall the patient seems to be doing quite well this morning. His urine output is adequate. He has had no nausea or vomiting. His hemoglobin and hematocrit are good. His potassium was high postop last night but has corrected overnight. He has no evidence of any ongoing bleeding. PLAN: The patient will be allowed clear liquids today. I will restart his Torsemide at 10 mg daily. His Rosas catheter will be continued for now. We will continue to monitor his fingersticks and treat these as needed with sliding scale insulin. He will be moved to a PCU level of care from the ICU level of care he is currently on. He will be encouraged to be out of bed with assistance as needed. We will recheck his labs in the morning. LEIGHA
[2020-04-08] VITALS: BP 121/58
[2020-04-08] MEDS: oxyCODONE 5MG TAB PO PRN ×3 (03:41→19:59)
[2020-04-08 04:00] VITALS: BP 115/69
[2020-04-08 05:25] LABS: BASO % 0.3 % (0.0-1.0); EOS # 0.1 10^3/uL (0.0-0.5); EOS % 0.9 % (0.0-3.0); HEMATOCRIT 28.2 % (42.0-52.0); HEMOGLOBIN 9.3 g/dl (13.5-17.5); LYMPH # 1.4 10^3/uL (1.5-5.0); LYMPH % 11.1 % (24.0-44.0); MEAN CORPUSCULAR HEMOGLOBIN 31.2 pg (27.0-33.0); MEAN CORPUSCULAR VOLUME 94.6 fl (80.0-96.0); MONO # 1.9 10^3/uL (0.0-0.8); MONO % 14.4 % (0.0-5.0); NEUTROPHILS # 9.4 10^3/uL (1.5-8.5); PLATELET COUNT, AUTOMATED 111 10^3/uL (150-450); RED BLOOD COUNT 2.98 10^6/uL (4.30-6.10); WHITE BLOOD COUNT 12.9 10^3/uL (4.0-10.0)
[2020-04-08 05:49] LABS: ALBUMIN 2.9 GM/DL (3.2-5.2); ALT/SGPT 13 U/L (12-78); BLOOD UREA NITROGEN 17 MG/DL (7-18); CALCIUM LEVEL 7.9 MG/DL (8.8-10.2); CARBON DIOXIDE LEVEL 27 MEQ/L (21-32); CHLORIDE LEVEL 107 MEQ/L (98-107); CREATININE FOR GFR 0.96 MG/DL (0.70-1.30); GLOMERULAR FILTRATION RATE > 60.0 (>42); GLUCOSE, FASTING 156 MG/DL (70-100); POTASSIUM SERUM 4.2 MEQ/L (3.5-5.1); SODIUM LEVEL 137 MEQ/L (136-145); TOTAL PROTEIN 5.9 GM/DL (6.4-8.2)
[2020-04-08] MEDS: MORPHINE 4 MG/ML 1ML VIAL/SYRINGE (J2270) IV PRN ×4 (06:48→22:10)
[2020-04-08 07:49] VITALS: BP 109/63
[2020-04-08] MEDS: SENOKOT S TAB PO SCH ×2 (08:59→19:59)
[2020-04-08] MEDS: TORSEMIDE 10 MG TABLET PO SCH (08:59)
[2020-04-08] MEDS: AMIODARONE 200 MG TAB (PACERONE) PO SCH (08:59)
[2020-04-08] MEDS: HumaLOG INSULIN (NovoLOG) PER UNIT SC SCH (08:59)
[2020-04-08] MEDS: ALPRAZolam 0.25 MG TAB PO PRN ×2 (08:59→19:59)
[2020-04-08] MEDS: METOPROLOL SUCC *XL* 25MG TAB (TopROL *XL*) PO SCH (09:00)
[2020-04-08] MEDS: PANTOPRAZOLE 40MG VIAL (C9113 PER 1) IV SCH (09:00)
[2020-04-08] MEDS: ANALGESIC BALM CRM 120 GM TOP PRN ×3 (09:01→20:00)
[2020-04-08] MEDS ORDERED: NITROGLYCERIN 0.4 MG SUBL TABLET SL PRN (09:45)
--- NOTE | 2020-04-08 10:13 | IPN ---
PROGRESS NOTE DATE: 04/08/2020 Arnoldo feels much better. His pain is significantly better. He is not short of breath. Blood pressure has been well controlled. He is getting out of bed. PHYSICAL EXAMINATION: Blood pressure 109/63, pulse of 100. General appearance: Alert, conversant, no distress. Lungs: Clear. Heart: Regular rhythm. Abdomen: Soft, dressed, less tender. No peripheral edema. LABORATORY DATA: White count 12.9, hemoglobin 9.3, platelets 111, sodium 137, potassium 4.2, BUN 17, creatinine 0.9, glucose 150. Blood sugars have been in the 100-200 range. IMPRESSION: 1. Status post emergency open splenectomy with spontaneous hemorrhage into the spleen. Discussed with the patient the need to have his vaccinations updated by Dr. Dorsey at discharge. 2. Coronary artery disease. He had a drug-eluting stent placed in January 2020. He should resume his prasugrel if this is acceptable by surgery. He is at risk of stenosis of his stent off his antiplatelet medicines. 3. Congestive heart failure with reduced ejection fraction. He has an implantable cardioverter defibrillator (ICD) in place. Ejection fraction (EF) of 35%. No sign of congestive heart failure on exam. He is back on his torsemide. 4. History of atrial fibrillation. He is off his Xarelto. This needs to be restarted when acceptable by surgery.
[2020-04-08] MEDS: metFORMIN XR 500MG TAB *GLUCOPHAGE XR PO SCH ×2 (11:56→19:59)
[2020-04-08] MEDS: LIDOCAINE 4% CREAM 5GM (LMX4) TOP PRN (11:57)
[2020-04-08 12:00] VITALS: BP 118/77
[2020-04-08 15:47] VITALS: BP 140/74
[2020-04-08] MEDS: ACETAMINOPHEN TAB 650MG DOSE (2X325MG) PO PRN (16:15)
[2020-04-08] MEDS: ATORVASTATIN 20 MG TAB PO SCH (19:58)
[2020-04-08 20:00] VITALS: BP 111/63
--- NOTE | 2020-04-08 20:09 | RO ---
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 PROCEDURE: Exploratory laparotomy with evacuation of hemoperitoneum and splenectomy. SURGEON: Faizan Dillon MD ANESTHESIA: General. INDICATIONS FOR THE PROCEDURE: The patient is a 69-year-old man who at approximately 7:30 in the morning on the 06 of April noted sudden onset of upper abdominal pain. This continued during the morning and became more severe. He presented to the emergency department at 12:[address] in the [address] A [address] scan in the abdomen showed evidence for hematoma surrounding the spleen with some free fluid in the perihepatic area and in the pericolic gutters. There was not much fluid in the pelvis. He received bolus of fluid and I was consulted to evaluate the patient. His blood pressure was initially in the 80s, but improved following the saline into the low 100s. In the emergency department, he initially remained hemodynamically stable, but as he was observed and we were preparing for his admission for observation, his blood pressure dropped. He received an additional bolus of fluid and then we began transfusion of blood. When it was clear he was not responding adequately to the fluid resuscitation and early blood transfusions, I elected to take him emergently to the operating room for exploratory laparotomy and possible splenectomy. OPERATIVE PROCEDURE: The patient was brought to the operating room and placed on the table in a supine position. A Rosas catheter was placed having been placed in the emergency department. TEDs and Sequentials were placed. He was placed under general endotracheal anesthesia. Anesthesia proceeded with additional transfusions of packed red blood cells, fresh frozen plasma and platelets during the course of the procedure. The patient's abdomen was prepped and draped in a sterile fashion. The skin and subcutaneous tissues were incised from the xiphoid to just below the umbilicus on the left side of the umbilicus. The fascia was scored with the cautery and the peritoneum was then opened rapidly using the cautery. On opening the peritoneum, there was clearly a large amount of blood throughout the abdomen. A large retractor was placed in the left upper quadrant. Manual exploration in the left upper quadrant revealed a large amount of clot and this was scooped out and placed in a basin. Approximately 3 to 5 lap pads were then placed rapidly into the left upper quadrant over the area of the spleen. The suction was used to remove a large amount of blood from throughout the abdomen, most of it liquid. Approximately 1500 cc of blood was removed from the abdomen was suction with another perhaps 1200 to 1500 cc of clot. Once the hemoperitoneum had been rapidly evacuated attention was turned back to the left upper quadrant. I was able to feel that the patient's spleen was not significantly enlarged. The spleen was rotated medially and a few filmy attachments lateral were divided and by blunt dissection, the spleen with the tail of the pancreas were brought up anteriorly up into the incision. I was able to control the vascular pedicle by finger compression. The vascular pedicle was taken in two bites with clamps and the vessels were cut and the spleen removed. Inspection revealed that the capsule of the spleen appeared to be largely either absent or attached still to the retroperitoneum laterally. I suspect that he had developed a large subcapsular hematoma which subsequently ruptured. There did not appear to be any large fractures and no palpable significant abnormalities within the spleen. The two vascular bundles were sutured ligated with 0 silk sutures. A number of small bleeding points were identified on the retroperitoneum and these were controlled primarily with cautery or with large hemoclips. Several small bleeding points of short gastric vessels were also controlled with hemoclips. The left upper quadrant was then packed with dry lap pads. The abdomen was then irrigated with 2 liters of warm saline and this was all removed, effectively removing all remaining blood from within the abdomen. A cursory examination of the small bowel showed no abnormalities. The colon had some stool in the sigmoid. The liver appeared normal. Attention was then returned to the left upper quadrant. The lap pads were removed. Several small additional bleeding points were identified and controlled with cautery. No large vessels were identified. There was no evidence of coagulopathy. I did place a single piece of Surgicel in the left upper quadrant effectively at the junction of the diaphragm with the retroperitoneum. Again the left upper quadrant was packed with dry lap pads and these were left in place for several minutes. I then began the closure of the abdominal incision. The inferior end of the fascial incision was approximated with interrupted simple sutures of #1 Vicryl. I then began closing the peritoneum where it was free enough to do so with a running suture of #1 Vicryl. At this point I paused to remove the remaining lap pads from the left upper quadrant. Inspection showed no evidence of any significant bleeding. After a lap count confirmed that there were no remaining lap pads within the abdomen, I completed the closure of the peritoneum and the fascia was then completely closed with interrupted simple sutures of #1 Vicryl. The skin incision was closed with skin nazario. The patient tolerated the procedure surprisingly well. He had received by the conclusion of the procedure a total of 5 units of packed cells, 1 apheresis pack of platelets and 1 unit of fresh frozen plasma. Editorial note: I should check these numbers of blood products before signing this report. The patient appeared stable enough for extubation. He was therefore awakened in the operating room, extubated and moved to the recovery room in stable condition.
[2020-04-08] MEDS: lisinopriL 5 MG TAB PO SCH (20:44)
--- NOTE | 2020-04-08 21:13 | IPN ---
PROGRESS NOTE DATE: 04/07/2020 SUBJECTIVE: The patient is now postop day number two from an emergent exploratory laparotomy with splenectomy for a ruptured spleen with extensive bleeding. He has remained hemodynamically stable since surgery. He was started on some clear liquids yesterday which he tolerated well. His urine output has been good. Vital signs show that he has remained afebrile over the past 24 hours. His pulse is in the 60's to low 100's. Blood pressure is excellent and his pulse oximetry is in the high 90's on nasal cannula oxygen at 4 liters. Intake and output shows that yesterday he had 2,000 in with almost 800 recorded out. He has resumed his Torsemide yesterday later in the day. PHYSICAL EXAMINATION: GENERAL APPEARANCE: The patient remains in significant discomfort with movement. He reports that much of this is the longstanding neck and back pain. He does have some upper abdominal pain associated with his incision. He is alert and oriented. HEART: Regular rhythm. LUNGS: Generally clear with some decreased breath sounds in the bases. ABDOMEN: Flat. He does have some bowel sounds present and his midline incision is dressed with a clean dressing. LABORATORY STUDIES: Lab studies today show a white count of 13,000, hemoglobin 9, hematocrit 28 and a platelet count of 111,000. Differential count shows 72% neutrophils, 11% lymphocytes and monocytes. Chemistry profile shows normal electrolytes with a BUN of 17, creatinine 0.96 and a glucose of 156. Liver function tests are normal and his total protein is 5.9 with an albumin of 2.9. IMPRESSION: The patient is doing very well now two days postop from splenectomy for a non-traumatic rupture of his spleen with extensive bleeding. His hematocrit is acceptable at 28%. His urine output is good today. He appears to be breathing a little easier and his discomfort seems a little less acute today. PLAN: The patient will be advanced to a consistent carbohydrate diet. I will put him back on his twice daily Metformin XR and stop the sliding scale insulin but will continue his fingersticks. I will resume his Atorvastatin. His Rosas catheter will be discontinued and he will be started on physical therapy. He may be stable enough to consider resumption of his antiplatelet agents or even his anticoagulant as early as tomorrow, but we will reassess at that time. LEIGHA
[2020-04-09] VITALS (8 sets, daily range): BP systolic 100–135; BP diastolic 56–76
[2020-04-09] MEDS: oxyCODONE 5MG TAB PO PRN ×3 (04:56→21:18)
[2020-04-09 05:18] LABS: HEMATOCRIT 28.2 % (42.0-52.0); HEMOGLOBIN 9.1 g/dl (13.5-17.5); MEAN CORPUSCULAR HEMOGLOBIN 30.8 pg (27.0-33.0); MEAN CORPUSCULAR HGB CONC 32.3 g/dl (32.0-36.5); MEAN CORPUSCULAR VOLUME 95.6 fl (80.0-96.0); PLATELET COUNT, AUTOMATED 126 10^3/uL (150-450); RED BLOOD COUNT 2.95 10^6/uL (4.30-6.10); WHITE BLOOD COUNT 13.2 10^3/uL (4.0-10.0)
[2020-04-09 05:49] LABS: BLOOD UREA NITROGEN 16 MG/DL (7-18); CALCIUM LEVEL 8.1 MG/DL (8.8-10.2); CARBON DIOXIDE LEVEL 27 MEQ/L (21-32); CHLORIDE LEVEL 103 MEQ/L (98-107); CREATININE FOR GFR 0.86 MG/DL (0.70-1.30); GLOMERULAR FILTRATION RATE > 60.0 (>42); GLUCOSE, FASTING 163 MG/DL (70-100); SODIUM LEVEL 137 MEQ/L (136-145)
[2020-04-09] MEDS: metFORMIN XR 500MG TAB *GLUCOPHAGE XR PO SCH ×2 (09:23→21:16)
[2020-04-09] MEDS: SENOKOT S TAB PO SCH ×2 (09:23→21:16)
[2020-04-09] MEDS: PANTOPRAZOLE 40MG VIAL (C9113 PER 1) IV SCH (09:23)
[2020-04-09] MEDS: AMIODARONE 200 MG TAB (PACERONE) PO SCH (09:24)
[2020-04-09] MEDS: METOPROLOL SUCC *XL* 25MG TAB (TopROL *XL*) PO SCH (09:25)
[2020-04-09] MEDS: TORSEMIDE 10 MG TABLET PO SCH (09:26)
[2020-04-09] MEDS: MORPHINE 4 MG/ML 1ML VIAL/SYRINGE (J2270) IV PRN (09:31)
[2020-04-09] MEDS ORDERED: ENOXAPARIN 40MG/0.4ML SYRINGE (J1650 PER 10MG) SC SCH (09:45)
--- NOTE | 2020-04-09 09:59 | IPN ---
PROGRESS NOTE DATE: 04/09/2020 SUBJECTIVE: Arnoldo is doing well postoperatively. He has a lot of pain in his back that is keeping from sleeping and has baseline problems with that. He said he is having trouble sleeping and would like something for sleep. No chest pain or shortness of breath. He is using incentive spirometry. He is pleased with his progress so far. OBJECTIVE: VITAL SIGNS: Blood pressure 126/66, afebrile. LUNGS: Clear. HEART: Regular rhythm. ABDOMEN: Soft. EXTREMITIES: No peripheral edema. Normal strength of both legs. LABORATORY DATA: White count 13.2, hemoglobin 9.1, platelets 126,000, sodium 137, potassium 4.0, BUN 16, creatinine 0.8. Blood sugars all below 200. IMPRESSION: 1. Status post splenectomy for spontaneous nontraumatic rupture. Differing decision about restarting antiplatelet drugs and anticoagulants to surgery. It looks like yesterday it was thought it might be able to restart today. 2. Diabetes. He was on sliding scale insulin. Renal function is stable. Perfusion is stable. Could restart his metformin. 3. History of atrial fibrillation. He is off the Xarelto. His rate is controlled. Restart this when okay with surgery. 4. Congestive heart failure with reduced ejection fraction with implantable cardioverter defibrillator (ICD) in place. No sign of any volume overload despite the aggressive intravenous (IV) fluids he required for resuscitation. The patient is back on his amiodarone 200 mg daily and lisinopril 5 mg daily. 5. Coronary artery disease. Drug-eluting stent placed 01/2020, should resume prasugrel as soon as surgery finds this acceptable. He is at risk of stent thrombosis as it has only been four to five months since the stent was placed. 6. Hyperlipidemia. He is on atorvastatin 80 mg daily. 7. Sleep disturbance. Will try some melatonin for this.
--- NOTE | 2020-04-09 10:53 | REP ---
INDICATION: follow atelectasis COMPARISON: 04/07/2020 TECHNIQUE: Portable AP view of the chest FINDINGS: Allowing for differences in technique, there appears to be continued areas of atelectasis/airspace disease in the right midlung zone and left perihilar/lower lobe regions similar to prior examination. No obvious effusion. No pneumothorax. Stable cardiomegaly. Skeletal structures are stable. IMPRESSION: No significant change from prior examination with suspected right mid lung zone and left mid to lower lobe atelectasis. <Electronically signed by Duglas Cesar > 04/09/20 [id number]
[2020-04-09] MEDS: ANALGESIC BALM CRM 120 GM TOP PRN ×2 (12:56→17:05)
[2020-04-09] MEDS: ACETAMINOPHEN TAB 650MG DOSE (2X325MG) PO PRN (17:05)
[2020-04-09] MEDS: lisinopriL 5 MG TAB PO SCH (21:00)
[2020-04-09] MEDS: RAMELTEON 8 MG TAB (ROZEREM) PO SCH (21:16)
[2020-04-09] MEDS: ATORVASTATIN 20 MG TAB PO SCH (21:16)
[2020-04-10] MEDS: ALPRAZolam 0.25 MG TAB PO PRN ×2 (00:46→20:41)
[2020-04-10 02:00] VITALS: BP 100/65
[2020-04-10] MEDS: oxyCODONE 5MG TAB PO PRN ×3 (05:08→23:38)
[2020-04-10 06:00] VITALS: BP 102/56
[2020-04-10 06:26] LABS: HEMATOCRIT 26.9 % (42.0-52.0); HEMOGLOBIN 8.5 g/dl (13.5-17.5); MEAN CORPUSCULAR HEMOGLOBIN 30.5 pg (27.0-33.0); MEAN CORPUSCULAR HGB CONC 31.6 g/dl (32.0-36.5); MEAN CORPUSCULAR VOLUME 96.4 fl (80.0-96.0); PLATELET COUNT, AUTOMATED 163 10^3/uL (150-450); RED BLOOD COUNT 2.79 10^6/uL (4.30-6.10); WHITE BLOOD COUNT 13.1 10^3/uL (4.0-10.0)
[2020-04-10 06:51] LABS: BLOOD UREA NITROGEN 16 MG/DL (7-18); CALCIUM LEVEL 8.5 MG/DL (8.8-10.2); CARBON DIOXIDE LEVEL 27 MEQ/L (21-32); CHLORIDE LEVEL 102 MEQ/L (98-107); CREATININE FOR GFR 0.86 MG/DL (0.70-1.30); GLOMERULAR FILTRATION RATE > 60.0 (>42); GLUCOSE, FASTING 145 MG/DL (70-100); POTASSIUM SERUM 3.7 MEQ/L (3.5-5.1); SODIUM LEVEL 135 MEQ/L (136-145)
[2020-04-10] MEDS: metFORMIN XR 500MG TAB *GLUCOPHAGE XR PO SCH ×2 (09:26→20:44)
[2020-04-10] MEDS: METOPROLOL SUCC *XL* 25MG TAB (TopROL *XL*) PO SCH (09:26)
[2020-04-10] MEDS: SENOKOT S TAB PO SCH ×2 (09:26→20:41)
[2020-04-10] MEDS: MIRALAX *UNIT DOSE* 17GM PACKET PO SCH ×2 (09:26→20:41)
[2020-04-10] MEDS: TORSEMIDE 10 MG TABLET PO SCH (09:27)
[2020-04-10] MEDS: AMIODARONE 200 MG TAB (PACERONE) PO SCH (09:27)
[2020-04-10] MEDS: PANTOPRAZOLE 40MG TAB (PROTONIX) PO SCH (09:27)
[2020-04-10] MEDS: ASPIRIN 81 MG ENTERIC TAB PO SCH (09:29)
[2020-04-10] MEDS: ACETAMINOPHEN TAB 650MG DOSE (2X325MG) PO PRN (09:31)
[2020-04-10 10:00] VITALS: BP 89/43
--- NOTE | 2020-04-10 11:58 | IPN ---
PROGRESS NOTE DATE: 04/10/2020 SUBJECTIVE: Arnoldo is under the surgical service. He is doing well. No chest pain or shortness of breath. He is recovering very well from his surgery. He should be able to go home soon. PHYSICAL EXAMINATION: VITAL SIGNS: Blood pressure 114/72, pulse of 100. HEENT: Unremarkable. LUNGS: Clear. HEART: Regular rhythm. ABDOMEN: Soft, nontender. EXTREMITIES: No peripheral edema. LABORATORY DATA: White count 13.1, hemoglobin 8.5, platelets 163,000. Sodium 135, potassium 3.7, BUN 16, creatinine 0.8, glucose is 145. IMPRESSION: 1. Status post splenectomy for nontraumatic splenic hemorrhage. CBC is stable. He has been restarted on his anticoagulant. Surgery is following him as are attending physicians. 2. History of diabetes. He is back on Metformin. His blood sugars are stable. We can stop his sliding scale and coverage now. 3. Atrial fibrillation, Xarelto was restarted yesterday. 4. History of coronary artery disease. He had a drug-eluting stent placed in 01/22. He is on aspirin. Could restart Prasugrel when acceptable by Surgery. 5. Hypertensive heart disease. Blood pressure is a little low, we are going to stop his Lisinopril.
[2020-04-10 14:00] VITALS: BP 114/63
[2020-04-10] MEDS ORDERED: RIVAROXABAN 15 MG TAB (XARELTO) PO SCH (18:00)
[2020-04-10] MEDS: RAMELTEON 8 MG TAB (ROZEREM) PO SCH (20:41)
[2020-04-10] MEDS: ATORVASTATIN 20 MG TAB PO SCH (20:42)
[2020-04-10 22:00] VITALS: BP 114/63
[2020-04-11 02:00] VITALS: BP 118/68
[2020-04-11 06:00] VITALS: BP 103/61
[2020-04-11 06:27] LABS: BASO % 0.2 % (0.0-1.0); EOS # 0.3 10^3/uL (0.0-0.5); EOS % 2.3 % (0.0-3.0); HEMATOCRIT 26.9 % (42.0-52.0); HEMOGLOBIN 8.5 g/dl (13.5-17.5); LYMPH # 1.4 10^3/uL (1.5-5.0); LYMPH % 10.6 % (24.0-44.0); MEAN CORPUSCULAR HEMOGLOBIN 30.5 pg (27.0-33.0); MEAN CORPUSCULAR HGB CONC 31.6 g/dl (32.0-36.5); MEAN CORPUSCULAR VOLUME 96.4 fl (80.0-96.0); MONO % 15.4 % (0.0-5.0); NEUTROPHILS # 9.1 10^3/uL (1.5-8.5); PLATELET COUNT, AUTOMATED 200 10^3/uL (150-450); RED BLOOD COUNT 2.79 10^6/uL (4.30-6.10); WHITE BLOOD COUNT 12.8 10^3/uL (4.0-10.0)
[2020-04-11 07:04] LABS: ALBUMIN 2.8 GM/DL (3.2-5.2); ALT/SGPT 11 U/L (12-78); BILIRUBIN,TOTAL 1.3 MG/DL (0.2-1.0); BLOOD UREA NITROGEN 17 MG/DL (7-18); CALCIUM LEVEL 8.5 MG/DL (8.8-10.2); CARBON DIOXIDE LEVEL 27 MEQ/L (21-32); CHLORIDE LEVEL 100 MEQ/L (98-107); CREATININE FOR GFR 0.88 MG/DL (0.70-1.30); GLOMERULAR FILTRATION RATE > 60.0 (>42); GLUCOSE, FASTING 155 MG/DL (70-100); POTASSIUM SERUM 3.6 MEQ/L (3.5-5.1); SODIUM LEVEL 132 MEQ/L (136-145)
[2020-04-11] MEDS: TORSEMIDE 10 MG TABLET PO SCH (08:21)
[2020-04-11] MEDS: AMIODARONE 200 MG TAB (PACERONE) PO SCH (08:21)
[2020-04-11] MEDS: ACETAMINOPHEN TAB 650MG DOSE (2X325MG) PO PRN (08:21)
[2020-04-11] MEDS: MIRALAX *UNIT DOSE* 17GM PACKET PO SCH (08:21)
[2020-04-11] MEDS: metFORMIN XR 500MG TAB *GLUCOPHAGE XR PO SCH (08:21)
[2020-04-11 08:22] VITALS: BP 127/69
[2020-04-11] MEDS: METOPROLOL SUCC *XL* 25MG TAB (TopROL *XL*) PO SCH (08:22)
[2020-04-11] MEDS: PANTOPRAZOLE 40MG TAB (PROTONIX) PO SCH (08:22)
[2020-04-11] MEDS: SENOKOT S TAB PO SCH (08:22)
[2020-04-11] MEDS: ASPIRIN 81 MG ENTERIC TAB PO SCH (08:22)
--- NOTE | 2020-04-11 08:23 | IPN ---
PROGRESS NOTE DATE: 04/09/2020 SUBJECTIVE: The patient is now postop day #3 from an emergency exploratory laparotomy with splenectomy for a nontraumatic rupture of his spleen. He today appears significantly improved as far as pain is concerned. He is sitting on the side of the bed and reports he is having much less discomfort. OBJECTIVE: VITAL SIGNS: Show that he has been afebrile over the past 24 hours. His pulse is in the range of 50s to 110 roughly, though mostly in the 70s and 80s. His blood pressure has been good. INTAKE AND OUTPUT: Show that yesterday he had 1140 in with 2425 out. GENERAL APPEARANCE: The patient is alert and oriented. HEENT: Sclerae are anicteric. HEART: Shows a regular rhythm in the 70s. LUNGS: Show diminished breath sounds at the bases bilaterally. ABDOMEN: Obese and protuberant. His incision is clean and dry and closed with surgical nazario. He does have active bowel sounds present. LABORATORY DATA: Today show a white count of 13,000, hemoglobin 9, hematocrit 28, and a platelet count of 126,000. His chemistry profile shows a sodium of 137, potassium 4.0, chloride 103, CO2 of 27, BUN of 16, creatinine 0.8, and a glucose of 163. IMPRESSION: The patient appears much more comfortable today. He has been taking intermittent oxycodone tablets with occasional morphine as well. He denies any nausea or vomiting. He has had some flatus, but still has not had a bowel movement and reports that he has been having problems with constipation since his cardiac surgery in particular. He was placed on some Senokot-S previously. PLAN: The patient will continue on his consistent carbohydrate diet. He will be transferred to a regular medical surgical floor today. I encouraged him to be up out of bed. His Protonix was changed from IV to oral, and I will start him on some Lovenox 40 mg subcutaneously daily. I anticipate resuming his Xarelto and antiplatelet agents tomorrow the . [facility]
--- NOTE | 2020-04-11 08:33 | IPN ---
PROGRESS NOTE DATE: 04/10/2020 SUBJECTIVE: The patient is now postop day #4 from an emergency exploratory laparotomy and splenectomy. He has remained hemodynamically stable over the past day. He is sitting up in a chair today when I came to see him. He indicated that he expected to go home today and is crestfallen when I suggested that he stay another day. He has not yet resumed his anticoagulation. He has still not had a bowel movement. A chest x-ray yesterday continued to show some significant atelectasis at the bases of both lungs. OBJECTIVE: VITAL SIGNS: Show that he has been afebrile over the past 24 hours. His pulse has been in the 70s to as high as 108. Blood pressure is good and his room air oxygen saturation is in the mid to upper 90s. INTAKE AND OUTPUT: Yesterday showed 1500 in with 1275 recorded out. GENERAL APPEARANCE: The patient as noted is up in a chair. He is alert. His mood is down. HEART: Shows a regular rhythm. LUNGS: Show good breath sounds in the upper lung nathan, but somewhat diminished breath sounds in the lower lung nathan. ABDOMEN: Remains obese and protuberant. His incision is clean and dry. He does have active bowel sounds. EXTREMITIES: Lower extremities show a trace of pretibial edema on both sides. LABORATORY DATA: Today show a white count of 13, hemoglobin 8, hematocrit 27, and platelet count of 163,000, which is beginning to come up. His chemistry profile showed a sodium of 135, potassium 3.7, chloride 102, CO2 of 27, BUN of 16, creatinine 0.8, and a glucose of 145. His pathology is still pending, though I spoke with the pathologist today and she had not seen any gross abnormalities. There was a small yellowish piece of tissue attached to the spleen and she was asking if I thought there was a change that this could be part of an adrenal, and I reported that this would not expected to be adrenal. Final pathology is still pending therefore. IMPRESSION: The patient is still making progress. He is eager to go home, but I am not sure he is ready yet. Physical therapy has assessed him and feels that he may be safe for ambulation at home with a walker. His pain level has certainly diminished. He has not yet had a bowel movement. PLAN: I will restart his Xarelto this evening. I will place him on an aspirin 81 mg p.o. daily. I had discussed this with Dr. Urias this morning. He is encouraged to be up out of bed and to continue his pulmonary toilette. His labs will be rechecked again in the morning and if he continues to do well, I will send him home tomorrow. We will make arrangements for a visiting nurse. LEIGHA
--- NOTE | 2020-04-11 14:26 | IPN ---
PROGRESS NOTE DATE: 04/11/2020 HISTORY: Patient is now postoperative day #5 from an emergency splenectomy for rupture. He had undergone a fairly recent 2-valve replacement. He was started back on his Xarelto yesterday and received aspirin as an antiplatelet agent, as the hospital does not have Prasugrel. Patient reports that his diet has been improving. He is voiding well and passing a lot of gas but reports he has not yet had a bowel movement. He did receive Senokot-S over the last few days as well as some MiraLax yesterday. He denies any significant abdominal pain. He has chronic back and neck pain. Vital signs show that he has been afebrile over the past 24 hours. Pulse is in the 80s to as high as 106. Blood pressure is excellent, and his room air oxygen saturation is in the mid 90s. Intake and output show that yesterday he had 2480 in with 2100 out. His weight is down 0.4 kg today from yesterday. PHYSICAL EXAMINATION: Patient is alert and sitting up in the chair looking more comfortable and also in better spirits today. Heart exam shows a regular rhythm. Lung sounds are generally clear anteriorly. There are some diminished sounds at the bases posteriorly, more so on the left. The abdomen is obese. He has active bowel sounds. His incision is healing nicely with surgical nazario in place. The abdomen is soft without any unexpected tenderness. Laboratory studies show white count of 13, hemoglobin 8, hematocrit 27, and a platelet count of 200,000. His differential count showed 71% neutrophils, 11% lymphocytes, and 15% monocytes. Chemistry profile showed a sodium 132, potassium 3.6, chloride 100, CO2 of 27, BUN 17, creatinine 0.9, and a glucose of 155. Total bilirubin is 1.3, but his other liver function tests (LFTs) are normal. Total protein is 7.0 with an albumin of 2.8. Pathology is still pending. IMPRESSION: Patient is doing very well now 5 days postoperative from splenectomy for a ruptured spleen. He tolerated his antiplatelet agent and Xarelto without any evidence of bleeding. His pain continues to diminish. He is tolerating a diet well, though has not had a bowel movement. He is passing flatus. PLAN: Patient will be discharged home today. He will go home on all of his usual medications. I discussed pain medications with him, and he will resume his treatment with Tramadol as needed and a Percocet tablet at night as needed as well. The patient was counseled that he will need to followup with Dr. Dorsey within the next week or so for a followup of his medical condition, and he will need to be scheduled for administration of immunizations to ensure that he is fully immunized against pneumococcus, Haemophilus influenza, and meningococcus. I will send him home with his nazario in place and have him come back in about a week for removal and followup. He was counseled to call the office for any problems. I did call Dr. Dorsey and spoke with him about the patient's treatment and condition, and he will make arrangements to see the patient in the office soon. LEIGHA
== END 2020-04-11 12:34 | disposition home health service (06) | DRG 799 ==
LOC: M ED 12:44 → EDSEX 12:44 → EDBD 12:44 → M ED INP 14:56 → M PCU 19:42 → M MSPAV 04-09 16:45
PROVIDERS: ADMIT Surgery; ATTEND Surgery
PROC: 0DCW0ZZ Extirpation of Matter from Peritoneum, Open Approach (ICD-10-PCS; 2020-04-06)
PROC: 30233N1 Transfusion of Nonautologous Red Blood Cells into Peripheral Vein, Percutaneous Approach (ICD-10-PCS; 2020-04-06)
PROC: 30233R1 Transfusion of Nonautologous Platelets into Peripheral Vein, Percutaneous Approach (ICD-10-PCS; 2020-04-06)
PROC: 30233K1 Transfusion of Nonautologous Frozen Plasma into Peripheral Vein, Percutaneous Approach (ICD-10-PCS; 2020-04-06)
PROC: 07TP0ZZ Resection of Spleen, Open Approach (ICD-10-PCS; principal; 2020-04-06 16:01)
DX: D73.5 Infarction of spleen (principal); R57.8 Other shock; I50.22 Chronic systolic (congestive) heart failure; I11.0 Hypertensive heart disease with heart failure; I25.10 Atherosclerotic heart disease of native coronary artery without angina pectoris; I48.91 Unspecified atrial fibrillation; G47.30 Sleep apnea, unspecified; E11.9 Type 2 diabetes mellitus without complications; K59.00 Constipation, unspecified; R63.4 Abnormal weight loss; I95.9 Hypotension, unspecified; F17.200 Nicotine dependence, unspecified, uncomplicated; M54.2 Cervicalgia; M35.3 Polymyalgia rheumatica; F41.9 Anxiety disorder, unspecified; Z95.3 Presence of xenogenic heart valve; Z79.84 Long term (current) use of oral hypoglycemic drugs; Z79.891 Long term (current) use of opiate analgesic; Z79.01 Long term (current) use of anticoagulants; Z79.899 Other long term (current) drug therapy; Z88.8 Allergy status to other drugs, medicaments and biological substances; Z91.041 Radiographic dye allergy status; Z91.040 Latex allergy status; Z90.49 Acquired absence of other specified parts of digestive tract; Z95.810 Presence of automatic (implantable) cardiac defibrillator; Z95.5 Presence of coronary angioplasty implant and graft; Z86.73 Personal history of transient ischemic attack (TIA), and cerebral infarction without residual deficits; Z86.718 Personal history of other venous thrombosis and embolism; Z79.02 Long term (current) use of antithrombotics/antiplatelets; Z20.822 Contact with and (suspected) exposure to COVID-19

== ENCOUNTER → 2020-04-16 | Outpatient (REF) | payer MEDICARE ==
[~2020-04-16] MED LIST changes: +AMIO200T3 PO; +D-20TAB PO
== END ==
LOC: M LAB REF 16:23
PROVIDERS: ATTEND Family Medicine
DX: M10.9 Gout, unspecified (principal)

== ENCOUNTER 2020-08-08 14:46 | Emergency (ER) | payer MEDICARE ==
[~2020-08-08] VITALS: Ht 167.6 cm; Wt 104.5 kg
[~2020-08-08 14:46] MED LIST changes: -LISI-542 PO; +LISI-898 PO
[2020-08-08] MEDS ORDERED: MAGN1CAP PO (14:59)
[2020-08-08] MEDS ORDERED: ZOLO100T (14:59)
[2020-08-08] MEDS ORDERED: PROAAER10 INH (14:59)
[2020-08-08 16:25] LABS: BASO % 0.3 % (0.0-1.0); EOS # 0.1 10^3/uL (0.0-0.5); EOS % 0.8 % (0.0-3.0); HEMATOCRIT 41.8 % (42.0-52.0); HEMOGLOBIN 13.9 g/dl (13.5-17.5); LYMPH # 1.9 10^3/uL (1.5-5.0); LYMPH % 12.2 % (24.0-44.0); MEAN CORPUSCULAR HEMOGLOBIN 32.6 pg (27.0-33.0); MEAN CORPUSCULAR HGB CONC 33.3 g/dl (32.0-36.5); MEAN CORPUSCULAR VOLUME 97.9 fl (80.0-96.0); MONO # 2.7 10^3/uL (0.0-0.8); NEUTROPHILS # 10.9 10^3/uL (1.5-8.5); NEUTROPHILS % 69.2 % (36.0-66.0); PLATELET COUNT, AUTOMATED 231 10^3/uL (150-450); RED BLOOD COUNT 4.27 10^6/uL (4.30-6.10)
--- NOTE | 2020-08-08 16:40 | REP ---
INDICATION: hand pain/swelling COMPARISON: None. TECHNIQUE: Four views right hand. FINDINGS: There is no evidence of acute fracture, dislocation, or intrinsic bone disease.There is mild chondrocalcinosis distal to the ulna. Subchondral cystic change is seen in the metacarpal heads and in the bases of the 3rd and 5th proximal phalanges. There are small spurs of the 2nd and 3rd metacarpal heads. 3 mm metallic foreign body is seen in the soft tissues posterior to the 5th middle phalanx. IMPRESSION: No fracture or dislocation. Arthritic changes as above. Tiny metallic foreign body in the soft tissues of the 5th digit. <Electronically signed by Pal Srinivasan > 08/08/20 [id number]
[2020-08-08 16:43] LABS: MONO % 17.1 % (2.0-8.0); WHITE BLOOD COUNT 15.7 10^3/uL (4.0-10.0)
[2020-08-08 16:47] LABS: ALBUMIN 3.3 GM/DL (3.2-5.2); ALT/SGPT 18 U/L (12-78); BILIRUBIN,DIRECT 0.2 MG/DL (0.0-0.2); BILIRUBIN,TOTAL 0.8 MG/DL (0.2-1.0); BLOOD UREA NITROGEN 20 MG/DL (7-18); CALCIUM LEVEL 9.1 MG/DL (8.8-10.2); CARBON DIOXIDE LEVEL 27 MEQ/L (21-32); CHLORIDE LEVEL 101 MEQ/L (98-107); CREATININE FOR GFR 0.84 MG/DL (0.70-1.30); GLOMERULAR FILTRATION RATE > 60.0 (>42); GLUCOSE, FASTING 138 MG/DL (70-100); SODIUM LEVEL 133 MEQ/L (136-145); TOTAL PROTEIN 7.7 GM/DL (6.4-8.2)
[2020-08-08] MEDS ORDERED: predniSONE 10 MG TAB PO ONE (18:15)
[2020-08-08] MEDS ORDERED: PERCOCET 5MG/325MG TAB PO ONE (18:20)
[2020-08-08 18:32] VITALS: BP 164/98
[2020-08-09] MEDS ORDERED: PRED20TA PO ×2 (12:42→12:48)
[2020-08-09] MEDS ORDERED: CEPH500C PO (12:42)
== END 2020-08-08 19:03 | disposition home or self-care (01) ==
LOC: M ED 14:46
DX: D72.829 Elevated white blood cell count, unspecified (principal); I10 Essential (primary) hypertension; M79.641 Pain in right hand; E11.9 Type 2 diabetes mellitus without complications; M11.231 Other chondrocalcinosis, right wrist; M85.641 Other cyst of bone, right hand; M25.741 Osteophyte, right hand; S60.452A Superficial foreign body of right middle finger, initial encounter; X58.XXXA Exposure to other specified factors, initial encounter; Y92.9 Unspecified place or not applicable; Y93.9 Activity, unspecified; Y99.9 Unspecified external cause status; I48.91 Unspecified atrial fibrillation; I50.9 Heart failure, unspecified; I25.2 Old myocardial infarction; I25.10 Atherosclerotic heart disease of native coronary artery without angina pectoris; F17.200 Nicotine dependence, unspecified, uncomplicated; Z79.84 Long term (current) use of oral hypoglycemic drugs; Z79.899 Other long term (current) drug therapy; Z79.01 Long term (current) use of anticoagulants

== ENCOUNTER 2020-08-09 10:57 | Emergency (ER) | payer MEDICARE ==
[~2020-08-09] VITALS: Ht 167.6 cm; Wt 105.9 kg
[~2020-08-09 10:57] MED LIST changes: +MAGN1CAP PO; +PROAAER10 INH; +ZOLO100T
[2020-08-09 10:58] VITALS: BP 129/62
[2020-08-09] MEDS ORDERED: PRED20TA PO ×2 (12:42→12:48)
[2020-08-09] MEDS ORDERED: CEPH500C PO (12:42)
== END 2020-08-09 13:01 | disposition home or self-care (01) ==
LOC: M ED 10:57
DX: L03.113 Cellulitis of right upper limb (principal); Z79.51 Long term (current) use of inhaled steroids; Z79.84 Long term (current) use of oral hypoglycemic drugs; Z79.899 Other long term (current) drug therapy

== ENCOUNTER → 2020-08-27 | Outpatient (CLI) | payer MEDICARE ==
[~2020-08-27] MED LIST changes: +CEPH500C PO
--- NOTE | 2020-08-27 09:42 | REPVR ---
PROCEDURE INFORMATION: Exam: CT Right Upper Extremity Without Contrast, Shoulder Exam date and time: 08/27/2020 9:20 AM Age: 70 years old Clinical indication: Pain; Shoulder; Right; Additional info: Contusion of RT shoulder TECHNIQUE: Imaging protocol: CT of the Right upper extremity without contrast was performed. Exam focused on the shoulder. Radiation optimization: All CT scans at this facility use at least one of these dose optimization techniques: automated exposure control; mA and/or kV adjustment per patient size (includes targeted exams where dose is matched to clinical indication); or iterative reconstruction. COMPARISON: CR Elbow, complete RIGHT 02/11/2019 4:49 PM FINDINGS: Bones/joints: Degenerative arthritis right acromioclavicular joint with cortical irregularity. Degenerative cortical irregularity of the proximal humerus and degenerative arthritis of the glenohumeral joint with sclerosis. No acute fracture or dislocation. Subchondral degenerative cystic formation of the proximal humerus laterally. Small juxtacortical calcifications adjacent to the coracoid process most likely degenerative and nontraumatic. Soft tissues: Soft tissue calcification superior to the acromion. Nonspecific soft tissue calcification medial to the proximal humerus. Lungs: Interstitial opacities of the right lung. There is note of accentuation the right justina probably on the basis of vascular summation. Intracardiac electrodes are present at the superior vena cava. IMPRESSION: 1. 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 2. No acute fracture. Electronically signed by: Lis Lawrence On 08/27/2020 09:42:27 AM
== END ==
LOC: M RAD 08:50
PROVIDERS: ATTEND Orthopaedic Surgery
DX: S40.011A Contusion of right shoulder, initial encounter (principal); W18.30XA Fall on same level, unspecified, initial encounter; Y92.009 Unspecified place in unspecified non-institutional (private) residence as the place of occurrence of the external cause

== ENCOUNTER → 2020-09-25 | Outpatient (CLI) | payer MEDICARE ==
--- NOTE | 2020-09-25 13:57 | REP ---
INDICATION: AAA COMPARISON: Multiple the latest 02/04/2020 TECHNIQUE: Noncontrast enhanced standard helical technique FINDINGS: Limited evaluation of the mediastinum and pulmonary justina show no gross abnormalities or significant changes from the prior exam. There are no pleural or pericardial effusions. There is no significant change in appearance of the imaged upper abdomen or imaged osseous structures. Limited evaluation of the thoracic aorta shows a maximal AP dimension of 5.1 cm at the aortic root. This is stable. Evaluation of the lung nathan shows the small nodular density seen previously in the superior segment of the right lower lobe abutting the major fissure to have resolved. There are chronic asymmetric parenchymal density. There is cylindrical bronchiectasis which appears stable. No new abnormal nodules, masses, or opacities have developed. IMPRESSION: 1. Thoracic aorta as described above. 2. Lung field findings as described above. <Electronically signed by Liam Perez > 09/25/20 2119
== END ==
LOC: M RAD 13:27
PROVIDERS: ATTEND Thoracic Surgery (Cardiothoracic Vascular Surgery)
DX: I71.4 Abdominal aortic aneurysm, without rupture (principal)

== ENCOUNTER → 2021-12-01 | Outpatient (REF) | payer MEDICARE ==
[~2021-12-01] MED LIST changes: -AMIO200T3 PO; +AMIO200T49 PO; +DOK1CAP4 PO; -DOK1CAP7 PO; -LISI-898 PO; +LISI5TAB11 PO
== END ==
LOC: M LAB REF 16:26
PROVIDERS: ATTEND Family Medicine
DX: M25.50 Pain in unspecified joint (principal)

== ENCOUNTER → 2021-12-24 | Outpatient (CLI) | payer MEDICARE | LOC: M RAD 12:34 | PROVIDERS: ATTEND Thoracic Surgery (Cardiothoracic Vascular Surgery) | DX: I71.2 Thoracic aortic aneurysm, without rupture (principal) ==

== ENCOUNTER 2022-10-08 18:34 | Emergency (ER) | payer MEDICARE ==
[~2022-10-08] VITALS: Ht 172.7 cm; Wt 110.3 kg
[~2022-10-08 18:34] MED LIST changes: +POTA-298 PO; -POTA1TAB14 PO
[2022-10-08 18:35] VITALS: TEMP 98
[2022-10-08] MEDS ORDERED: EZET10TA21 (19:46)
[2022-10-08] MEDS ORDERED: ASPI81CH33 PO (19:46)
[2022-10-08] MEDS ORDERED: OZEMPIC (19:46)
[2022-10-08 19:50] LABS: BASO # 0.1 10^3/uL (0.0-0.2); BASO % 0.7 % (0.0-1.0); EOS # 0.3 10^3/uL (0.0-0.5); EOS % 2.6 % (0.0-3.0); HEMATOCRIT 44.2 % (42.0-52.0); HEMOGLOBIN 15.1 g/dl (13.5-17.5); LYMPH # 2.2 10^3/uL (1.5-5.0); MEAN CORPUSCULAR HEMOGLOBIN 33.4 pg (27.0-33.0); MEAN CORPUSCULAR HGB CONC 34.2 g/dl (32.0-36.5); MEAN CORPUSCULAR VOLUME 97.8 fl (80.0-96.0); MONO % 8.6 % (2.0-8.0); NEUTROPHILS # 7.5 10^3/uL (1.5-8.5); NEUTROPHILS % 67.8 % (36.0-66.0); PLATELET COUNT, AUTOMATED 228 10^3/uL (150-450); RED BLOOD COUNT 4.52 10^6/uL (4.30-6.10); WHITE BLOOD COUNT 11.1 10^3/uL (4.0-10.0)
[2022-10-08 20:06] LABS: ALBUMIN 3.7 G/DL (3.2-5.2); ALKALINE PHOSPHATASE 85 U/L (46-116); ALT/SGPT 19 U/L (7.0-40); AST/SGOT < 8 U/L (<34); BILIRUBIN,DIRECT 0.2 MG/DL (<0.4); BILIRUBIN,TOTAL 0.5 MG/DL (0.3-1.2); BLOOD UREA NITROGEN 26 MG/DL (9-23); CALCIUM LEVEL 9.1 MG/DL (8.3-10.6); CARBON DIOXIDE LEVEL 25 MMOL/L (20-31); CHLORIDE LEVEL 108 MMOL/L (98-107); CREATININE FOR GFR 0.77 MG/DL (0.70-1.30); GLOMERULAR FILTRATION RATE > 60.0 (>42); GLUCOSE, FASTING 157 MG/DL (74-106); POTASSIUM SERUM 4.1 MMOL/L (3.5-5.1); SODIUM LEVEL 139 MMOL/L (136-145)
[2022-10-08 20:27] LABS: RSV AMPLIFICATION NEGATIVE (NEGATIVE)
[2022-10-08] MEDS ORDERED: methylPREDNISolone 125MG 2ML VIAL IV ONE (21:20)
[2022-10-08] MEDS ORDERED: traMADol 50 MG TAB PO ONE (21:55)
[2022-10-08] MEDS ORDERED: PRED20TA PO (21:57)
[2022-10-08 22:04] VITALS: BP 156/88; O2SAT 92
== END 2022-10-08 22:07 | disposition home or self-care (01) ==
LOC: M ED 18:34
DX: R06.00 Dyspnea, unspecified (principal); J84.9 Interstitial pulmonary disease, unspecified; I48.91 Unspecified atrial fibrillation; I50.20 Unspecified systolic (congestive) heart failure; I25.10 Atherosclerotic heart disease of native coronary artery without angina pectoris; I25.2 Old myocardial infarction; E11.9 Type 2 diabetes mellitus without complications; I11.9 Hypertensive heart disease without heart failure; E78.5 Hyperlipidemia, unspecified; F32.A Depression, unspecified; Z95.5 Presence of coronary angioplasty implant and graft; Z79.01 Long term (current) use of anticoagulants; Z79.899 Other long term (current) drug therapy; F17.200 Nicotine dependence, unspecified, uncomplicated; Z91.040 Latex allergy status; Z79.84 Long term (current) use of oral hypoglycemic drugs; Z79.82 Long term (current) use of aspirin
CPT/HCPCS: 71045; 71250; 80048; 80076; 85025; 87631; 93005; 96374; 99284; J2930

== ENCOUNTER 2023-07-07 07:41 | Emergency (ER) | payer MEDICARE ==
[~2023-07-07] VITALS: Ht 177.8 cm; Wt 104.5 kg
[~2023-07-07 07:41] MED LIST changes: -AMIO400T5 PO; +AMIO400T6 PO; +ASPI81CH33 PO; +EZET10TA21; +OZEMPIC; -ZOLO100T; +ZOLO100T PO
[2023-07-07] MEDS ORDERED: SEMA1PEN2 SQ (08:19)
[2023-07-07] MEDS ORDERED: POTA20LI16 PO (08:19)
[2023-07-07] MEDS ORDERED: XANA0.25 PO (08:19)
[2023-07-07] MEDS: MORPHINE 4 MG/ML 1ML VIAL IV ONE (09:22)
[2023-07-07] MEDS: diazePAM 10MG/2ML SYRINGE IV ONE (09:22)
[2023-07-07] MEDS: ONDANSETRON 4MG 2ML VIAL IV ONE (09:22)
[2023-07-07] MEDS ORDERED: METF-838 PO (10:43)
[2023-07-07] MEDS ORDERED: XARE20TA PO (10:43)
[2023-07-07] MEDS ORDERED: MULTTAB61 PO (10:43)
[2023-07-07] MEDS ORDERED: HOME MED LIST COMPLETE! XX SCH (10:45)
[2023-07-07] MEDS: dexAMETHasone 20MG/5ML VIAL IV ONE (13:05)
[2023-07-07] MEDS: diazePAM 5MG TABLET PO ONE (13:07)
[2023-07-07] MEDS: PERCOCET 5MG/325MG TAB PO ONE (13:07)
[2023-07-07] MEDS: MORPHINE 4 MG/ML 1ML VIAL IV PRN (14:48)
[2023-07-07 15:06] LABS: BASO # 0.1 10^3/uL (0.0-0.2); BASO % 0.3 % (0.0-1.0); EOS # 0.1 10^3/uL (0.0-0.5); EOS % 0.9 % (0.0-3.0); HEMATOCRIT 46.4 % (42.0-52.0); HEMOGLOBIN 15.5 g/dl (13.5-17.5); LYMPH # 1.5 10^3/uL (1.5-5.0); LYMPH % 9.7 % (24.0-44.0); MEAN CORPUSCULAR HEMOGLOBIN 33.3 pg (27.0-33.0); MEAN CORPUSCULAR HGB CONC 33.4 g/dl (32.0-36.5); MEAN CORPUSCULAR VOLUME 99.6 fl (80.0-96.0); MONO # 1.3 10^3/uL (0.0-0.8); MONO % 8.3 % (2.0-8.0); NEUTROPHILS % 80.3 % (36.0-66.0); PLATELET COUNT, AUTOMATED 257 10^3/uL (150-450); RED BLOOD COUNT 4.66 10^6/uL (4.30-6.10)
[2023-07-07 15:37] LABS: BLOOD UREA NITROGEN 17 MG/DL (9-23); CALCIUM LEVEL 9.2 MG/DL (8.3-10.6); CARBON DIOXIDE LEVEL 25 MMOL/L (20-31); CHLORIDE LEVEL 107 MMOL/L (98-107); CREATININE FOR GFR 0.77 MG/DL (0.70-1.30); GLOMERULAR FILTRATION RATE > 60.0 (>42); GLUCOSE, FASTING 160 MG/DL (74-106); POTASSIUM SERUM 4.6 MMOL/L (3.5-5.1); SODIUM LEVEL 134 MMOL/L (136-145)
[2023-07-07] MEDS ORDERED: ISOVUE-370 76% 100ML VIAL As Ordered ONE (15:46)
[2023-07-07] MEDS ORDERED: PERC5TAB12 PO (18:52)
[2023-07-07] MEDS ORDERED: TIZA2CAP PO (18:52)
[2023-07-07] MEDS ORDERED: MEDR4PAK PO (18:52)
[2023-07-07] MEDS: OXYCODONE/APAP 5MG/325MG(HOME DOSE PACK) PO ONE (18:55)
[2023-07-07] MEDS: tiZANidine 4 MG TAB PO ONE (18:55)
[2023-07-07 19:02] VITALS: BP 134/74; TEMP 98; O2SAT 93
== END 2023-07-07 19:10 | disposition home or self-care (01) ==
LOC: M ED 07:41
DX: M54.2 Cervicalgia (principal); I65.21 Occlusion and stenosis of right carotid artery; I50.22 Chronic systolic (congestive) heart failure; I25.119 Atherosclerotic heart disease of native coronary artery with unspecified angina pectoris; I48.91 Unspecified atrial fibrillation; E11.9 Type 2 diabetes mellitus without complications; I11.0 Hypertensive heart disease with heart failure; E78.5 Hyperlipidemia, unspecified; F41.9 Anxiety disorder, unspecified; F32.A Depression, unspecified; F17.210 Nicotine dependence, cigarettes, uncomplicated; F10.10 Alcohol abuse, uncomplicated; Z91.040 Latex allergy status; Z79.899 Other long term (current) drug therapy; Z79.1 Long term (current) use of non-steroidal anti-inflammatories (NSAID); Z79.84 Long term (current) use of oral hypoglycemic drugs; Z79.810 Long term (current) use of selective estrogen receptor modulators (SERMs); Z79.4 Long term (current) use of insulin
CPT/HCPCS: 70450; 70496; 70498; 71275; 72125; 80048; 84484; 85025; 93880; 96374; 96375; 96376; 99284; J1100; J2405; J3360; Q9967

== ENCOUNTER 2023-07-13 20:20 | Emergency (ER) | payer MEDICARE ==
[~2023-07-13] VITALS: Ht 172.7 cm; Wt 106.8 kg
[2023-07-13 20:20] VITALS: BP 114/65; TEMP 96.5; O2SAT 97
[~2023-07-13 20:20] MED LIST changes: +MEDR4PAK PO; +METF-838 PO; +MULTTAB61 PO; +POTA20LI16 PO; +SEMA1PEN2 SQ; +TIZA2CAP PO; +XARE20TA PO
[2023-07-13] MEDS ORDERED: XANA0.25 PO (20:40)
== END 2023-07-13 20:21 | disposition left against medical advice (07) ==
LOC: M ED 20:20
DX: Z53.21 Procedure and treatment not carried out due to patient leaving prior to being seen by health care provider (principal)

== ENCOUNTER 2023-08-23 13:42 | Emergency (ER) | payer MEDICARE ==
[~2023-08-23] VITALS: Ht 170.2 cm; Wt 99.6 kg
[2023-08-23 15:51] LABS: BASO # 0.1 10^3/uL (0.0-0.2); BASO % 0.4 % (0.0-1.0); EOS # 0.3 10^3/uL (0.0-0.5); EOS % 2.8 % (0.0-3.0); HEMATOCRIT 47.1 % (42.0-52.0); HEMOGLOBIN 16.2 g/dl (13.5-17.5); LYMPH # 2.7 10^3/uL (1.5-5.0); LYMPH % 23.3 % (24.0-44.0); MEAN CORPUSCULAR HEMOGLOBIN 33.2 pg (27.0-33.0); MEAN CORPUSCULAR HGB CONC 34.4 g/dl (32.0-36.5); MEAN CORPUSCULAR VOLUME 96.5 fl (80.0-96.0); MONO # 1.1 10^3/uL (0.0-0.8); MONO % 9.2 % (2.0-8.0); NEUTROPHILS # 7.4 10^3/uL (1.5-8.5); PLATELET COUNT, AUTOMATED 263 10^3/uL (150-450); RED BLOOD COUNT 4.88 10^6/uL (4.30-6.10); WHITE BLOOD COUNT 11.6 10^3/uL (4.0-10.0)
[2023-08-23 16:03] LABS: INR 0.98; PROTHROMBIN TIME 12.7 SECONDS (12.5-14.5)
[2023-08-23 16:09] LABS: LIPASE 33 U/L (12-53)
[2023-08-23 16:10] LABS: AMYLASE 34 U/L (30-118)
[2023-08-23 16:11] LABS: ALBUMIN 3.4 G/DL (3.2-5.2); ALKALINE PHOSPHATASE 87 U/L (46-116); ALT/SGPT 12 U/L (7.0-40); AST/SGOT 11 U/L (<34); BILIRUBIN,DIRECT 0.1 MG/DL (<0.4); BILIRUBIN,TOTAL 0.5 MG/DL (0.3-1.2); BLOOD UREA NITROGEN 16 MG/DL (9-23); CALCIUM LEVEL 9.4 MG/DL (8.3-10.6); CARBON DIOXIDE LEVEL 26 MMOL/L (20-31); CHLORIDE LEVEL 105 MMOL/L (98-107); CREATININE FOR GFR 0.82 MG/DL (0.70-1.30); GLOMERULAR FILTRATION RATE > 60.0 (>42); GLUCOSE, FASTING 123 MG/DL (74-106); POTASSIUM SERUM 4.8 MMOL/L (3.5-5.1); SODIUM LEVEL 136 MMOL/L (136-145); TOTAL PROTEIN 7.2 G/DL (5.7-8.2)
[2023-08-23 18:25] VITALS: BP 177/89; TEMP 96.1; O2SAT 94
== END 2023-08-23 18:25 | disposition left against medical advice (07) ==
LOC: M ED 13:42
DX: Z53.21 Procedure and treatment not carried out due to patient leaving prior to being seen by health care provider (principal)

== ENCOUNTER 2023-09-01 20:00 | Emergency (ER) | payer MEDICARE ==
[~2023-09-01] VITALS: Ht 177.8 cm; Wt 96.8 kg
[2023-09-01 20:58] LABS: BASO % 0.3 % (0.0-1.0); EOS # 0.5 10^3/uL (0.0-0.5); EOS % 3.8 % (0.0-3.0); HEMATOCRIT 44.1 % (42.0-52.0); LYMPH # 2.7 10^3/uL (1.5-5.0); MEAN CORPUSCULAR HEMOGLOBIN 33.1 pg (27.0-33.0); MEAN CORPUSCULAR VOLUME 97.4 fl (80.0-96.0); MONO # 1.2 10^3/uL (0.0-0.8); MONO % 9.1 % (2.0-8.0); NEUTROPHILS # 8.3 10^3/uL (1.5-8.5); NEUTROPHILS % 65.4 % (36.0-66.0); PLATELET COUNT, AUTOMATED 298 10^3/uL (150-450); RED BLOOD COUNT 4.53 10^6/uL (4.30-6.10); WHITE BLOOD COUNT 12.7 10^3/uL (4.0-10.0)
[2023-09-01 21:20] LABS: INR 1.62; PARTIAL THROMBOPLASTIN TIME 37.3 SECONDS (24.8-34.2); PROTHROMBIN TIME 18.7 SECONDS (12.5-14.5)
[2023-09-01] MEDS: ASPIRIN 81MG CHEW TABLET PO ONE (21:25)
[2023-09-01] MEDS: MAALOX 30 ML SUSP *UDC PO ONE (21:25)
[2023-09-01 21:26] LABS: CK-MB VALUE MASS < 1.0 NG/ML (<3.6); LIPASE 38 U/L (12-53)
[2023-09-01 21:28] LABS: ALBUMIN 3.1 G/DL (3.2-5.2); ALKALINE PHOSPHATASE 86 U/L (46-116); ALT/SGPT 15 U/L (7.0-40); AST/SGOT 10 U/L (<34); BILIRUBIN,DIRECT < 0.1 MG/DL (<0.4); BILIRUBIN,TOTAL 0.3 MG/DL (0.3-1.2); BLOOD UREA NITROGEN 20 MG/DL (9-23); CALCIUM LEVEL 8.6 MG/DL (8.3-10.6); CARBON DIOXIDE LEVEL 26 MMOL/L (20-31); CHLORIDE LEVEL 109 MMOL/L (98-107); CPK CREATINE PHOSPHOKINASE 49 U/L (46-171); CREATININE FOR GFR 0.91 MG/DL (0.70-1.30); GLOMERULAR FILTRATION RATE > 60.0 (>42); GLUCOSE, FASTING 122 MG/DL (74-106); MB/CK RELATIVE INDEX 2.04 (< OR =4); POTASSIUM SERUM 4.4 MMOL/L (3.5-5.1); SODIUM LEVEL 140 MMOL/L (136-145); TOTAL PROTEIN 6.7 G/DL (5.7-8.2)
[2023-09-01] MEDS ORDERED: ISOVUE-370 76% 100ML VIAL As Ordered ONE (21:39)
[2023-09-01] MEDS: MORPHINE 4 MG/ML 1ML VIAL IV PRN (23:08)
[2023-09-01] MEDS: ONDANSETRON 4MG 2ML VIAL IV ONE (23:08)
[2023-09-01 23:53] LABS: MB/CK RELATIVE INDEX 2.08 (< OR =4)
[2023-09-02 01:40] LABS: CK-MB VALUE MASS < 1.0 NG/ML (<3.6); CPK CREATINE PHOSPHOKINASE 45 U/L (46-171); MB/CK RELATIVE INDEX 2.22 (< OR =4)
[2023-09-02 01:45] VITALS: BP 138/81; O2SAT 94
[2023-09-02] MEDS ORDERED: SIME180C25 PO (01:51)
[2023-09-02 02:11] VITALS: TEMP 97
== END 2023-09-02 02:13 | disposition home or self-care (01) ==
LOC: M ED 20:00
DX: R07.9 Chest pain, unspecified (principal); I48.91 Unspecified atrial fibrillation; I50.22 Chronic systolic (congestive) heart failure; I25.119 Atherosclerotic heart disease of native coronary artery with unspecified angina pectoris; E11.9 Type 2 diabetes mellitus without complications; I11.0 Hypertensive heart disease with heart failure; Z91.040 Latex allergy status; Z79.1 Long term (current) use of non-steroidal anti-inflammatories (NSAID); Z79.84 Long term (current) use of oral hypoglycemic drugs; Z79.810 Long term (current) use of selective estrogen receptor modulators (SERMs); Z79.4 Long term (current) use of insulin; Z79.899 Other long term (current) drug therapy
CPT/HCPCS: 71045; 71275; 74174; 80048; 80076; 82550; 82553; 83690; 84484; 85025; 85610; 85730; 93005; 93041; 94760; 96374; 99285; J2405; Q9967

== ENCOUNTER → 2023-09-09 | Outpatient (REF) | payer MEDICARE ==
[~2023-09-09] MED LIST changes: +SIME180C25 PO
== END ==
LOC: M LAB REF 16:53
PROVIDERS: ATTEND Family Medicine
DX: R53.83 Other fatigue (principal)

== ENCOUNTER → 2023-09-24 | Outpatient (CLI) | payer MEDICARE ==
[~2023-09-24] MED LIST changes: +E-Z-GAS II EFFERVESCENT PACKET (SODIUM BICARB./CITRIC ACID/SIMETHICONE) As Ordered ONE; +E-Z-HD 98% w/w 340GM SUSP BTL As Ordered ONE; +E-Z-PAQUE 96% w/w SUSP 176GM BTL As Ordered ONE
== END ==
LOC: M RAD 09:39
PROVIDERS: ATTEND Surgery
DX: R10.13 Epigastric pain (principal)

== ENCOUNTER 2023-10-05 11:16 | Emergency (ER) | payer MEDICARE ==
[~2023-10-05] VITALS: Ht 172.7 cm; Wt 90.9 kg
[~2023-10-05 11:16] MED LIST changes: +DULO1CAP5 PO; -E-Z-GAS II EFFERVESCENT PACKET (SODIUM BICARB./CITRIC ACID/SIMETHICONE) As Ordered ONE; -E-Z-HD 98% w/w 340GM SUSP BTL As Ordered ONE; -E-Z-PAQUE 96% w/w SUSP 176GM BTL As Ordered ONE; +EZET10TA21 PO; +FAMO40TA3 PO; +MAGN100T PO; +METO1TAB7 PO; +ONDA-282; +SIME80TA12 PO; +SUCR1ORA PO
[2023-10-05] MEDS: NS 1,000 ML IV ONE (11:44)
[2023-10-05 12:03] LABS: BASO # 0.1 10^3/uL (0.0-0.2); BASO % 0.5 % (0.0-1.0); EOS # 0.5 10^3/uL (0.0-0.5); EOS % 3.8 % (0.0-3.0); HEMATOCRIT 45.7 % (42.0-52.0); LYMPH # 2.4 10^3/uL (1.5-5.0); LYMPH % 20.2 % (24.0-44.0); MEAN CORPUSCULAR HEMOGLOBIN 33.8 pg (27.0-33.0); MEAN CORPUSCULAR VOLUME 96.6 fl (80.0-96.0); MONO # 1.2 10^3/uL (0.0-0.8); NEUTROPHILS # 7.8 10^3/uL (1.5-8.5); NEUTROPHILS % 65.3 % (36.0-66.0); PLATELET COUNT, AUTOMATED 230 10^3/uL (150-450); RED BLOOD COUNT 4.73 10^6/uL (4.30-6.10)
[2023-10-05 12:22] LABS: LIPASE 24 U/L (12-53)
[2023-10-05 12:24] LABS: ALBUMIN 3.5 G/DL (3.2-5.2); ALKALINE PHOSPHATASE 70 U/L (46-116); ALT/SGPT 15 U/L (7.0-40); AST/SGOT 14 U/L (<34); BILIRUBIN,DIRECT 0.3 MG/DL (<0.4); BILIRUBIN,TOTAL 0.8 MG/DL (0.3-1.2); BLOOD UREA NITROGEN 23 MG/DL (9-23); CALCIUM LEVEL 9.1 MG/DL (8.3-10.6); CARBON DIOXIDE LEVEL 26 MMOL/L (20-31); CHLORIDE LEVEL 105 MMOL/L (98-107); CREATININE FOR GFR 1.08 MG/DL (0.70-1.30); GLOMERULAR FILTRATION RATE > 60.0 (>42); GLUCOSE, FASTING 126 MG/DL (74-106); POTASSIUM SERUM 4.1 MMOL/L (3.5-5.1); SODIUM LEVEL 136 MMOL/L (136-145); TOTAL PROTEIN 6.6 G/DL (5.7-8.2)
[2023-10-05] MEDS: traMADol 50 MG TAB PO ONE (13:17)
[2023-10-05 15:15] VITALS: BP 112/76; TEMP 96.9; O2SAT 97
== END 2023-10-05 15:42 | disposition home or self-care (01) ==
LOC: EDBD 11:16 → M ED 11:16
DX: E86.0 Dehydration (principal); I25.119 Atherosclerotic heart disease of native coronary artery with unspecified angina pectoris; I50.22 Chronic systolic (congestive) heart failure; I25.2 Old myocardial infarction; G47.33 Obstructive sleep apnea (adult) (pediatric); Z88.8 Allergy status to other drugs, medicaments and biological substances; Z91.041 Radiographic dye allergy status; Z91.040 Latex allergy status; Z79.1 Long term (current) use of non-steroidal anti-inflammatories (NSAID); Z79.84 Long term (current) use of oral hypoglycemic drugs; Z79.810 Long term (current) use of selective estrogen receptor modulators (SERMs); Z79.899 Other long term (current) drug therapy

== ENCOUNTER 2023-10-21 10:26 | Day surgery (SDC) | payer MEDICARE ==
[~2023-10-21] VITALS: Ht 170.2 cm; Wt 93.3 kg
[~2023-10-21 10:26] MED LIST changes: +NS 1,000 ML IV ONE
[2023-10-21] MEDS: NS 1,000 ML IV ONE (10:47)
[2023-10-21 13:12] VITALS: TEMP 98.2
[2023-10-21 13:49] VITALS: BP 131/81; O2SAT 96
== END 2023-10-21 13:58 | disposition home or self-care (01) ==
LOC: M OPP 10:26
PROVIDERS: ATTEND Surgery
DX: K22.4 Dyskinesia of esophagus (principal); K29.70 Gastritis, unspecified, without bleeding; K29.80 Duodenitis without bleeding; R10.13 Epigastric pain; R11.0 Nausea; E11.9 Type 2 diabetes mellitus without complications; I48.91 Unspecified atrial fibrillation; I20.9 Angina pectoris, unspecified; I50.9 Heart failure, unspecified; Z95.0 Presence of cardiac pacemaker; Z95.5 Presence of coronary angioplasty implant and graft; Z86.74 Personal history of sudden cardiac arrest; F17.200 Nicotine dependence, unspecified, uncomplicated; Z79.1 Long term (current) use of non-steroidal anti-inflammatories (NSAID); Z79.82 Long term (current) use of aspirin; Z79.84 Long term (current) use of oral hypoglycemic drugs; Z79.891 Long term (current) use of opiate analgesic; Z79.899 Other long term (current) drug therapy; Z88.8 Allergy status to other drugs, medicaments and biological substances; Z91.040 Latex allergy status; Z91.041 Radiographic dye allergy status

== ENCOUNTER → 2023-11-17 | Outpatient (CLI) | payer MEDICARE ==
[~2023-11-17] MED LIST changes: -NS 1,000 ML IV ONE
== END ==
LOC: M RAD 08:37
PROVIDERS: ATTEND Family Medicine
DX: R11.10 Vomiting, unspecified (principal)
CPT/HCPCS: 78264; A9541

== ENCOUNTER → 2023-11-24 | Outpatient (REF) | payer MEDICARE ==
[2023-11-24 17:48] LABS: FOLATE > 24.0 NG/ML (>5.4)
[2023-11-24 17:49] LABS: VITAMIN B12 LEVEL 728 PG/ML (211-911)
== END ==
LOC: M LAB REF 16:30
PROVIDERS: ATTEND Family Medicine
DX: I11.0 Hypertensive heart disease with heart failure (principal); D64.9 Anemia, unspecified; I50.42 Chronic combined systolic (congestive) and diastolic (congestive) heart failure

== ENCOUNTER → 2024-04-10 | Outpatient (CLI) | payer BC, MEDICARE ==
[~2024-04-10] MED LIST changes: +AMIO400T14 PO; -AMIO400T6 PO; +FLORAGEN PO; +ONDA-83 PO; -SIME180C25 PO; +SIME1CAP4 PO
== END ==
LOC: M WUC 15:33
PROVIDERS: ATTEND Family Medicine
DX: J20.9 Acute bronchitis, unspecified (principal)

== ENCOUNTER 2024-05-02 06:29 | Day surgery (SDC) | payer MEDICARE ==
[~2024-05-02] VITALS: Ht 172.7 cm; Wt 103.9 kg
[~2024-05-02 06:29] MED LIST changes: +NS (Normal Saline) 0.9% 1,000 ML IV SCH; +SUPETAB44 PO
[2024-05-02] MEDS ORDERED: GLUCOSE 4 GM CHEW PO PRN ×2 (07:20→11:25)
[2024-05-02] MEDS ORDERED: DEXTROSE 50% 50ML SYRINGE IV PRN ×2 (07:20→11:25)
[2024-05-02] MEDS ORDERED: GLUCAGON INJ 1MG VIAL SC PRN ×2 (07:20→11:25)
[2024-05-02] MEDS: INSULIN LISPRO (NovoLOG) PER UNIT SC PRN ×3 (07:41→11:39)
[2024-05-02] MEDS: ceFAZolin SOD 2 GM in IV 1 EA IV ONE (08:07)
[2024-05-02] MEDS ORDERED: ROCURONIUM BROMIDE 50MG/5ML VIAL As Ordered ONE (08:26)
[2024-05-02] MEDS ORDERED: propofoL 200 MG/20 ML VIAL As Ordered ONE (08:26)
[2024-05-02] MEDS ORDERED: SUGAMMADEX SODIUM 500 MG/5 ML VIAL (BRIDION) As Ordered ONE (08:26)
[2024-05-02] MEDS ORDERED: KETOROLAC 60MG 2ML VIAL As Ordered ONE (08:26)
[2024-05-02] MEDS ORDERED: ETOMIDATE INJ 20MG/10ML VIAL As Ordered ONE (08:26)
[2024-05-02] MEDS ORDERED: PHENYLephrine 500MCG 5ML (100MCG/ML) SYRINGE As Ordered ONE (08:26)
[2024-05-02] MEDS ORDERED: ACETAMINOPHEN 1000MG/100ML IV BAG As Ordered ONE (08:26)
[2024-05-02] MEDS ORDERED: fentaNYL 250 MCG/5 ML INJECTION As Ordered ONE (08:26)
[2024-05-02] MEDS ORDERED: LIDOCAINE 2% 100MG/5ML SDV (FOR ANES.) As Ordered ONE (08:26)
[2024-05-02] MEDS ORDERED: ONDANSETRON 4MG 2ML VIAL As Ordered ONE (08:26)
[2024-05-02] MEDS ORDERED: fentaNYL 100 MCG/2 ML INJECTION As Ordered ONE (09:26)
[2024-05-02] MEDS: BUPivacaine LIPOSOME/PF 266MG 20ML VIAL (13.3MG/ML)(EXPAREL) As Ordered ONE (09:51)
[2024-05-02] MEDS ORDERED: ONDANSETRON 4MG 2ML VIAL IV PRN (09:55)
[2024-05-02] MEDS ORDERED: fentaNYL 100 MCG/2 ML INJECTION IV PRN (09:55)
[2024-05-02] MEDS ORDERED: oxyCODONE 5MG TAB PO PRN (09:55)
[2024-05-02] MEDS ORDERED: NS (Normal Saline) 0.9% 1,000 ML IV SCH ×2 (09:55→10:25)
[2024-05-02] MEDS ORDERED: HYDROMORPHONE HCL 0.5 MG/ 0.5 ML SYRINGE IV PRN (09:55)
[2024-05-02] MEDS ORDERED: traMADol 50 MG TAB PO PRN (10:25)
[2024-05-02 11:55] VITALS: BP 124/68; TEMP 97.6; O2SAT 93
== END 2024-05-02 12:14 | disposition home or self-care (01) ==
LOC: M SDC 06:29
PROVIDERS: ATTEND Surgery
DX: K43.2 Incisional hernia without obstruction or gangrene (principal); K66.0 Peritoneal adhesions (postprocedural) (postinfection); I48.91 Unspecified atrial fibrillation; I25.10 Atherosclerotic heart disease of native coronary artery without angina pectoris; E11.9 Type 2 diabetes mellitus without complications; I50.9 Heart failure, unspecified; I11.0 Hypertensive heart disease with heart failure; Z95.810 Presence of automatic (implantable) cardiac defibrillator; Z95.5 Presence of coronary angioplasty implant and graft; I25.2 Old myocardial infarction; Z86.73 Personal history of transient ischemic attack (TIA), and cerebral infarction without residual deficits; G47.9 Sleep disorder, unspecified; Z88.8 Allergy status to other drugs, medicaments and biological substances; Z91.040 Latex allergy status; Z91.041 Radiographic dye allergy status; Z79.899 Other long term (current) drug therapy; F17.210 Nicotine dependence, cigarettes, uncomplicated
CPT/HCPCS: 49615; C1781; J0131; J0665; J0666; J0690; J1100; J1815; J1885; J2371; J2405; J3010; S2900

== ENCOUNTER → 2024-08-14 | Outpatient (CLI) | payer MEDICARE ==
[~2024-08-14] MED LIST changes: -NS (Normal Saline) 0.9% 1,000 ML IV SCH
== END ==
LOC: M RAD 09:57
PROVIDERS: ATTEND Thoracic Surgery (Cardiothoracic Vascular Surgery)
DX: I71.21 Aneurysm of the ascending aorta, without rupture (principal)

== ENCOUNTER 2025-01-31 15:15 | Emergency (ER) | payer MEDICARE ==
[~2025-01-31 15:15] MED LIST changes: -AMIO200T49 PO; +AMIO200T54 PO; -EZET10TA21; -EZET10TA21 PO; +EZET10TA57; +EZET10TA57 PO
[2025-01-31 15:27] VITALS: TEMP 98.9
[2025-01-31 15:53] LABS: BASO # 0.0 10^3/uL (0.0-0.2); BASO % 0.3 % (0.0-1.0); EOS # 0.2 10^3/uL (0.0-0.5); EOS % 1.2 % (0.0-3.0); LYMPH # 1.8 10^3/uL (1.5-5.0); LYMPH % 11.5 % (24.0-44.0); NEUTROPHILS # 11.0 10^3/uL (1.5-8.5); NEUTROPHILS % 69.3 % (36.0-66.0); PLATELET COUNT, AUTOMATED 239 10^3/uL (150-450)
[2025-01-31 16:17] LABS: CK-MB VALUE MASS 1.5 NG/ML (<3.6)
[2025-01-31 16:18] LABS: CPK CREATINE PHOSPHOKINASE 41 U/L (46-171); MB/CK RELATIVE INDEX 3.65 (< OR =4)
[2025-01-31 16:19] LABS: CALCIUM LEVEL 9.3 MG/DL (8.3-10.6); CARBON DIOXIDE LEVEL 25 MMOL/L (20-31); CHLORIDE LEVEL 106 MMOL/L (98-107); CREATININE FOR GFR 0.83 MG/DL (0.70-1.30); GLOMERULAR FILTRATION RATE > 90.0 (>42); POTASSIUM SERUM 4.5 MMOL/L (3.5-5.1); SODIUM LEVEL 138 MMOL/L (136-145)
[2025-01-31 16:36] LABS: MONO # 2.7 10^3/uL (0.0-0.8); MONO % 17.2 % (2.0-8.0)
[2025-01-31 18:30] VITALS: BP 144/61; O2SAT 97
== END 2025-01-31 19:01 | disposition left against medical advice (07) ==
LOC: M ED 15:15
DX: Z53.21 Procedure and treatment not carried out due to patient leaving prior to being seen by health care provider (principal)

== ENCOUNTER 2025-03-06 12:40 | Observation (INO) | payer MEDICARE ==
[~2025-03-06 12:40] MED LIST changes: -DOXY100T PO; -OMEG10005 PO; -PAINTAB PO
[2025-03-06 18:00] VITALS: BP 136/62; TEMP 98; O2SAT 96
[2025-03-06] MEDS ORDERED: DEXTROSE 50% 50 ML SYRINGE IV PRN (18:50)
[2025-03-06] MEDS ORDERED: GLUCAGON INJ 1 MG VIAL SC PRN (18:50)
[2025-03-06] MEDS ORDERED: MIRALAX *UNIT DOSE* 17 GM PACKET PO PRN (18:50)
[2025-03-06] MEDS ORDERED: GLUCOSE 4 GM CHEW PO PRN (18:50)
[2025-03-06 19:16] LABS: BASO # 0.1 10^3/uL (0.0-0.2); BASO % 0.6 % (0.0-1.0); EOS # 0.5 10^3/uL (0.0-0.5); EOS % 4.6 % (0.0-3.0); LYMPH # 2.5 10^3/uL (1.5-5.0); LYMPH % 23.7 % (24.0-44.0); MONO # 0.9 10^3/uL (0.0-0.8); MONO % 8.3 % (2.0-8.0); NEUTROPHILS # 6.6 10^3/uL (1.5-8.5); NEUTROPHILS % 62.4 % (36.0-66.0); PLATELET COUNT, AUTOMATED 371 10^3/uL (150-450)
[2025-03-06 19:46] LABS: C REACTIVE PROTEIN QUANTITATIV 1.59 MG/DL (<1.0)
[2025-03-06 19:46] LABS: CALCIUM LEVEL 9.2 MG/DL (8.3-10.6); CARBON DIOXIDE LEVEL 27 MMOL/L (20-31); CHLORIDE LEVEL 106 MMOL/L (98-107); CREATININE FOR GFR 0.73 MG/DL (0.70-1.30); GLOMERULAR FILTRATION RATE > 90.0 (>42); POTASSIUM SERUM 5.0 MMOL/L (3.5-5.1); SODIUM LEVEL 139 MMOL/L (136-145)
[2025-03-06] MEDS: RIVAROXABAN 20MG TAB PO SCH (20:00)
[2025-03-06] MEDS ORDERED: OMEG10005 PO (20:07)
[2025-03-06] MEDS ORDERED: OXYC1TAB23 PO (20:07)
[2025-03-06] MEDS ORDERED: MIRA3350 PO (20:08)
[2025-03-06] MEDS ORDERED: PAINTAB PO (20:08)
[2025-03-06] MEDS ORDERED: HOME MED LIST COMPLETE! XX SCH (20:10)
[2025-03-06 20:14] VITALS: BP 169/73; TEMP 98.2; O2SAT 97
[2025-03-06] MEDS: INSULIN LISPRO (NovoLOG) PER UNIT SC SCH (20:57)
[2025-03-06] MEDS: DOXYCYCLINE HYCLATE 100 MG TABLET PO SCH (21:02)
[2025-03-06] MEDS: ATORVASTATIN 20 MG TAB PO SCH (21:02)
[2025-03-06] MEDS: ASPIRIN 81 MG ENTERIC TABLET PO SCH (21:03)
[2025-03-06] MEDS: cefTRIAXone SOD 2 GM in DEXTROSE 5% (D5W) ADV/MINI-BAG 50 ML IV SCH (21:25)
[2025-03-06 21:51] LABS: KETONE, URINE AUTO RFX NEGATIVE (NEGATIVE); LEUKOCYTE ESTERASE UR AUTO RFX NEGATIVE (NEGATIVE); MUCUS, URINE RFX SMALL (NEGATIVE); NITRITE, URINE AUTO RFX NEGATIVE (NEGATIVE); RBC, URINE AUTO RFX 1 /HPF (0-3); SQUAM EPITHELIAL CELL UR AURFX 1 /HPF (0-6); WBC, URINE AUTO RFX 0 /HPF (0-3)
[2025-03-06] MEDS: OLANZapine 5 MG TAB PO ONE (22:02)
[2025-03-06] MEDS: traMADol 50 MG TAB PO PRN (22:03)
[2025-03-06] MEDS: SERTRALINE 100 MG TAB PO SCH (23:41)
[2025-03-07 04:00] VITALS: BP 135/66; TEMP 98.2; O2SAT 98
[2025-03-07 06:53] LABS: BASO # 0.1 10^3/uL (0.0-0.2); BASO % 0.6 % (0.0-1.0); EOS # 0.6 10^3/uL (0.0-0.5); EOS % 6.1 % (0.0-3.0); LYMPH # 2.9 10^3/uL (1.5-5.0); LYMPH % 31.1 % (24.0-44.0); MONO # 0.9 10^3/uL (0.0-0.8); MONO % 9.5 % (2.0-8.0); NEUTROPHILS # 4.9 10^3/uL (1.5-8.5); NEUTROPHILS % 52.5 % (36.0-66.0); PLATELET COUNT, AUTOMATED 379 10^3/uL (150-450)
[2025-03-07 07:24] LABS: ALT/SGPT 12 U/L (7.0-40); AST/SGOT 15 U/L (<34); CALCIUM LEVEL 8.8 MG/DL (8.3-10.6); CARBON DIOXIDE LEVEL 26 MMOL/L (20-31); CHLORIDE LEVEL 110 MMOL/L (98-107); CREATININE FOR GFR 0.70 MG/DL (0.70-1.30); GLOMERULAR FILTRATION RATE > 90.0 (>42); MAGNESIUM LEVEL 1.5 MG/DL (1.8-2.4); POTASSIUM SERUM 4.7 MMOL/L (3.5-5.1); SODIUM LEVEL 142 MMOL/L (136-145)
[2025-03-07] MEDS: MORPHINE 2 MG/ML 1 ML VIAL IV ONE (08:14)
[2025-03-07] MEDS: INSULIN LISPRO (NovoLOG) PER UNIT SC SCH (09:49)
[2025-03-07] MEDS: METOPROLOL SUCC. 50 MG *XL* TAB PO SCH (09:50)
[2025-03-07] MEDS: DICLOFENAC EPOLAMINE 1.3% PATCH TOP SCH (09:51)
[2025-03-07] MEDS: SENNOSIDES/DOCUSATE SODIUM 8.6 MG/50MG TAB PO PRN (13:19)
[2025-03-07 14:00] VITALS: BP 109/57; TEMP 98; O2SAT 95
[2025-03-07] MEDS ORDERED: NICOTINE 14 MG/24 HR TRANSDERMAL TD SCH (17:00)
[2025-03-07] MEDS: NICOTINE 14 MG/24 HR TRANSDERMAL TD SCH (17:24)
[2025-03-07 20:17] VITALS: BP 125/59; TEMP 98.1; O2SAT 94
[2025-03-07] MEDS: EZETIMIBE 10 MG TABLET PO SCH (21:30)
[2025-03-07] MEDS: MORPHINE 4 MG/ML 1 ML VIAL IV ONE (21:31)
[2025-03-08] MEDS: ACETAMINOPHEN 325 MG TAB PO PRN (05:47)
[2025-03-08 06:37] VITALS: BP 117/56; TEMP 98.1
[2025-03-08 08:02] LABS: BASO # 0.1 10^3/uL (0.0-0.2); BASO % 0.5 % (0.0-1.0); EOS # 0.7 10^3/uL (0.0-0.5); EOS % 6.3 % (0.0-3.0); LYMPH # 3.2 10^3/uL (1.5-5.0); LYMPH % 28.5 % (24.0-44.0); MONO # 1.0 10^3/uL (0.0-0.8); MONO % 9.2 % (2.0-8.0); NEUTROPHILS # 6.2 10^3/uL (1.5-8.5); NEUTROPHILS % 55.2 % (36.0-66.0); PLATELET COUNT, AUTOMATED 444 10^3/uL (150-450)
[2025-03-08 08:26] LABS: C REACTIVE PROTEIN QUANTITATIV 0.66 MG/DL (<1.0); CALCIUM LEVEL 9.1 MG/DL (8.3-10.6); CARBON DIOXIDE LEVEL 26 MMOL/L (20-31); CHLORIDE LEVEL 104 MMOL/L (98-107); CREATININE FOR GFR 0.84 MG/DL (0.70-1.30); GLOMERULAR FILTRATION RATE > 90.0 (>42); POTASSIUM SERUM 4.6 MMOL/L (3.5-5.1); SODIUM LEVEL 138 MMOL/L (136-145)
[2025-03-08 08:48] VITALS: BP 117/56
[2025-03-08] MEDS ORDERED: AMOX875T2 PO (09:53)
[2025-03-08] MEDS ORDERED: DOXY100T PO (09:53)
== END 2025-03-08 10:57 | disposition home or self-care (01) ==
LOC: M MS5PR 17:12
PROVIDERS: ADMIT Orthopaedic Surgery Hand Surgery; ATTEND Student in an Organized Health Care Education/Training Program
DX: A41.9 Sepsis, unspecified organism (principal); M25.512 Pain in left shoulder; I11.0 Hypertensive heart disease with heart failure; E78.5 Hyperlipidemia, unspecified; E11.9 Type 2 diabetes mellitus without complications; I25.10 Atherosclerotic heart disease of native coronary artery without angina pectoris; Z95.5 Presence of coronary angioplasty implant and graft; I50.9 Heart failure, unspecified; I48.91 Unspecified atrial fibrillation; Z95.2 Presence of prosthetic heart valve; Z95.810 Presence of automatic (implantable) cardiac defibrillator; M54.9 Dorsalgia, unspecified; G89.29 Other chronic pain; Z90.49 Acquired absence of other specified parts of digestive tract; Z66 Do not resuscitate; Z79.82 Long term (current) use of aspirin; Z79.01 Long term (current) use of anticoagulants; Z79.84 Long term (current) use of oral hypoglycemic drugs; Z79.899 Other long term (current) drug therapy; Z88.8 Allergy status to other drugs, medicaments and biological substances; Z91.040 Latex allergy status; Z91.041 Radiographic dye allergy status; J18.9 Pneumonia, unspecified organism
CPT/HCPCS: 36415; 71045; 71250; 74176; 80048; 80053; 81001; 83605; 83735; 84145; 85025; 86140; 87040; 87486; 87581; 87633; 87798; 96374; 96375; 96376; G0378; G0379; J0696; J1815

== ENCOUNTER → 2025-03-06 | Outpatient (CLI) | payer MEDICARE ==
[~2025-03-06] MED LIST changes: +DOXY100T PO; +OMEG10005 PO; +PAINTAB PO
== END ==
LOC: M SOG 11:04
PROVIDERS: ATTEND Orthopaedic Surgery Hand Surgery
DX: M25.512 Pain in left shoulder (principal)

== ENCOUNTER → 2025-03-06 | Outpatient (REF) | payer MEDICARE ==
[2025-03-06 14:57] LABS: SOURCE, BODY FLUID CRYSTALS LT SHOULDER
[2025-03-06 15:03] LABS: CRYSTALS, BODY FLUID NONE SEEN (NONE SEEN)
== END ==
LOC: M LAB REF 13:47
PROVIDERS: ATTEND Orthopaedic Surgery Hand Surgery
DX: M25.512 Pain in left shoulder (principal)